=== PATIENT | female | born 1945 | race Caucasian/White ===

== ENCOUNTER 2018-01-08 11:58 | Emergency (ER) | payer MEDICARE, BC ==
[~2018-01-08] VITALS: Ht 162.6 cm; Wt 56.2 kg
[~2018-01-08 11:58] MED LIST: ATORVASTATIN CA20 MG PO; CARAFATE1 GM PO; DAILY MULTIPLE1 EACH PO; DOCUSATE SODIU100 MG PO; FUROSEMIDE40 MG PO; GAS-X80 MG PO; IBUPROFEN800 MG PO; LEVOTHYROXINE50 MCG PO; LYRICA75 MG PO; OXYCODONE HCL5 MG PO; PEPCID20 MG PO; POTASSIUM CHLO10 ME1 PO; TESSALON PERLE100 MG PO; VENTOLIN HFA18 GM INH; ZOFRAN ODT4 MG PO
[2018-01-08] MEDS ORDERED: OMEPRAZOLE20 MG PO (12:27)
--- OUTSIDE RECORDS SUMMARY | 2018-01-08 13:30 | XMS | Clinical Summary ---
Demographics + + + | Address | [address] | | | [place] [address] | + + + | Home Phone | | + + + | Preferred Language | Unknown | + + + | Marital Status | | + + + | Episcopal Affiliation | CAT | + + + | Race | White | + + + | Ethnic Group | Not or | + + + Author + + + | Author | [facility] | + + + | Organization | [facility] | + + + | Address | Unknown | + + + | Phone | Unavailable | + + + Support +------+ +---------+ + | Name | Relationship | Address | Phone | +------+ +---------+ + ECON | Unknown | | +------+ +---------+ + Care Team Providers + +------+ + | Care Golf Technician Name | Role | Phone | + +------+ + | Luke Benavides DO | PP | | + +------+ + Source Comments [facility] is fully live on both [facility] and [facility] Allergies + + + + + + | Active Allergy | Reactions | Severity | Noted | Comments | | | | | Date | | + + + + + + | Adhesive Bandage | Dermatitis | Medium | 03/20/20 | | | | | | 11 | | + + + + + + | Aspirin | Nausea | Medium | 03/20/20 | Stomach burning | | | | | 11 | sensation | + + + + + + | Diphenhydramine-Zinc | Pruritus | Medium | 03/20/20 | | | Acetate | | | 11 | | + + + + + + | Codeine | Rash, Nausea and | Medium | 03/20/20 | Headaches | | | Vomiting | | 11 | | + + + + + + | Cortisone | Pruritus, Edema, | High | 03/17/20 | | | | Nausea | | 14 | | + + + + + + | Domperidone | Unknown, Dyspnea | High | 02/21/20 | Weakness | | | | | 16 | | + + + + + + | Duloxetine | Unknown | Medium | 02/21/20 | Euphoric feeling | | | | | 16 | | + + + + + + | Hydrocodone-Acetamin | Nausea and Vomiting, | Low | 02/21/20 | Ringing in ears | | ophen | Dizziness | | 16 | | + + + + + + | Hydrocortisone | Hives, Rash | High | 02/21/20 | | | | | | 16 | | + + + + + + | Lidocaine | Hives | High | 02/21/20 | | | | | | 16 | | + + + + + + | Morphine | Headache, Nausea | Medium | 03/20/20 | | | | | | 11 | | + + + + + + | Oxycodone-Acetaminop | Nausea and Vomiting | Low | 02/21/20 | | | hen | | | 16 | | + + + + + + | Metoclopramide | Dyspnea | High | 02/21/20 | Shakiness/ | | | | | 16 | weakness | + + + + + + | Sulfamethoxazole-Tri | Rash | Medium | 02/21/20 | | | methoprim | | | 16 | | + + + + + + | Triamcinolone | Hives | High | 02/21/20 | | | | | | 16 | | + + + + + + Current Medications + + +---------+---------+------+------+-------+ | Prescription | Sig. | Disp. | Refills | Star | End | Statu | | | | | | t | Date | s | | | | | | Date | | | + + +---------+---------+------+------+-------+ | cyanocobalamin | Take 1,000 mcg by | | | | | Activ | | (VITAMIN B-12) 1,000 | mouth once daily. | | | | | e | | mcg Oral Tablet | | | | | | | + + +---------+---------+------+------+-------+ | levothyroxine | Take 50 mcg by mouth | | | | | Activ | | (SYNTHROID) 50 mcg | once daily. | | | | | e | | Oral Tablet | | | | | | | + + +---------+---------+------+------+-------+ | conjugated | Place 0.5 g into the | | | | | Activ | | estrogens 0.625 | vagina three times | | | | | e | | mg/gram Vaginal | weekly (on Saturday, | | | | | | | Cream | Saturday and | | | | | | | | Saturday). Administer | | | | | | | | in a cyclic regimen | | | | | | | | (3 weeks on and 1 | | | | | | | | week off). | | | | | | + + +---------+---------+------+------+-------+ | atorvastatin 20 mg | Take 20 mg by mouth | | | | | Activ | | oral tablet | once daily. | | | | | e | + + +---------+---------+------+------+-------+ | potassium chloride | Take 1 packet by | 14 | 0 | 07/2 | | Activ | | 20 mEq oral packet | mouth once daily. | packet | | 2/20 | | e | | | | | | 14 | | | + + +---------+---------+------+------+-------+ | simethicone chew | Take 1 tablet by | 60 | 1 | 09/0 | | Activ | | 80 mg oral | mouth four times | tablet | | 4/20 | | e | | tablet,chewable | daily as needed for | | | 14 | | | | | bloating. | | | | | | + + +---------+---------+------+------+-------+ | pregabalin 75 mg | Take 150 mg by mouth | | | | | Activ | | oral capsule | once daily at | | | | | e | | | bedtime. Max: 600 | | | | | | | | mg/day | | | | | | + + +---------+---------+------+------+-------+ | Erythromycin 250 | Take 0.5 tablets by | 42 | 2 | 11/0 | | Activ | | mg oral tablet | mouth four times | tablet | | 4/20 | | e | | | daily. Take for 21 | | | 15 | | | | | days and then stop | | | | | | | | for 1 week. Repeat | | | | | | | | cycle | | | | | | + + +---------+---------+------+------+-------+ | nitroglycerin 0.3 | Place 0.3 mg under | | | | | Activ | | mg sublingual | tongue as needed for | | | | | e | | tablet, sublingual | chest pain. Place | | | | | | | | under tongue and | | | | | | | | allow to dissolve. | | | | | | | | Administer every 5 | | | | | | | | minutes, max of 3 | | | | | | | | doses in 15 minutes. | | | | | | + + +---------+---------+------+------+-------+ | mirtazapine 15 mg | | | | 12/2 | | Activ | | oral tablet | | | | 12/21 | | e | | | | | | 15 | | | + + +---------+---------+------+------+-------+ | pantoprazole 20 mg | Take 1 tablet by | 180 | 3 | 03 | | Activ | | oral tablet,delayed | mouth two times | tablet | | 12/21 | | e | | release (DR/EC) | daily. Take 30 | | | 16 | | | | | minutes prior to | | | | | | | | meal | | | | | | + + +---------+---------+------+------+-------+ | Lactobacillus | Take by mouth 2 | | | | | Activ | | acidophilus 100 mg | (two) times daily. | | | | | e | | (1 billion cell) | | | | | | | | oral capsule | | | | | | | + + +---------+---------+------+------+-------+ | acetaminophen 325 | Take 1-2 tablets by | | | 04/1 | | Activ | | mg oral tablet | mouth every four | | | 5/20 | | e | | | hours as needed. | | | 16 | | | + + +---------+---------+------+------+-------+ | hydrOXYzine | Take 1 capsule by | 20 | 0 | 04/1 | | Activ | | pamoate 25 mg oral | mouth every six | capsule | | 5/20 | | e | | capsule | hours as needed | | | 16 | | | | | (nausea). | | | | | | + + +---------+---------+------+------+-------+ | senna-docusate | Take 1 tablet by | 60 | 1 | 04/1 | | Activ | | (SENNA PLUS) 8.6-50 | mouth two times | tablet | | 5/20 | | e | | mg oral tablet | daily. | | | 16 | | | + + +---------+---------+------+------+-------+ | polyethylene | Mix 1 packet and | 30 | 1 | 04/1 | | Activ | | glycol 17 gram oral | take orally once | packet | | 5/20 | | e | | powder in packet | daily as needed (for | | | 16 | | | | | constipation). | | | | | | + + +---------+---------+------+------+-------+ | ondansetron ODT | Dissolve 1 tablet in | 15 | 1 | 04/1 | | Activ | | (ZOFRAN ODT) 4 mg | mouth every twelve | tablet | | 5/20 | | e | | oral | hours as needed. | | | 16 | | | | tablet,disintegratin | | | | | | | | g | | | | | | | + + +---------+---------+------+------+-------+ | oxyCODONE, | Take 1-4 tablets by | 150 | 0 | 05/0 | | Activ | | immediate release, 5 | mouth every four | tablet | | 3/20 | | e | | mg oral tablet | hours as needed (for | | | 16 | | | | | pain.). | | | | | | + + +---------+---------+------+------+-------+ | gabapentin 300 mg | Take 1 capsule by | 120 | 0 | 07/1 | | Activ | | oral capsule | mouth three times | capsule | | 1/20 | | e | | | daily. | | | 16 | | | + + +---------+---------+------+------+-------+ | traMADol 50 mg | Take 1-2 tablets | 120 | 0 | 08/1 | | Activ | | oral tablet | every 6 hours as | tablet | | 6/20 | | e | | | needed for pain. Do | | | 16 | | | | | not exceed 300 | | | | | | | | mg/day. Wean as | | | | | | | | tolerated. Stop if | | | | | | | | nausea increases. | | | | | | + + +---------+---------+------+------+-------+ | furosemide (LASIX) | Take three times | 120 | 0 | 08/1 | | Activ | | 20 mg oral tablet | daily as needed for | tablet | | 6/20 | | e | | | unilateral leg edema | | | 16 | | | + + +---------+---------+------+------+-------+ | meloxicam 15 mg | TK 1 T PO QD | | 0 | 06/0 | | Activ | | oral tablet | | | | 8/20 | | e | | | | | | 17 | | | + + +---------+---------+------+------+-------+ | HYDROmorphone | Take 1 to 2 tablets | 20 | 0 | 06/2 | | Activ | | (DILAUDID) 2 mg oral | by mouth every six | tablet | | 1/20 | | e | | tablet | hours as needed for | | | 17 | | | | | moderate pain. | | | | | | + + +---------+---------+------+------+-------+ | diclofenac | Apply 4 g to | 100 g | 0 | 12/1 | | Activ | | (VOLTAREN) 1 % | affected area four | | | 2/20 | | e | | topical gel | times daily. 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/16/2013 | + + + Encounters +--------+ + + + + | Date | Type | Specialty | Care Team | Description | +--------+ + + + + | 11/12/ | Office | | Bj Dominguez MD | Vulvovaginitis | | 2016 | Visit | | | (Primary Dx) | +--------+ + + + + | 11/12/ | Hospital | | [facility] | | | 2016 | Encounter | | DEJUAN Catherine | | +--------+ + + + + | 11/12/ | Office | | [facility] | Status post total | | 2016 | Visit | | DEJUAN Catherine | right knee | | | | | | replacement (Primary | | | | | | Dx); Status post | | | | | | total left knee | | | | | | replacement | +--------+ + + + + | 11/08/ | Senior Insight Manager | | [facility] | Right knee pain, | | 2016 | | | DEJUAN Catherine | unspecified | | | | | | chronicity (Primary | | | | | | Dx) | +--------+ + + + + | 11/05/ | Senior Insight Manager | | [facility] | Knee pain, | | 2016 | | | DEJUAN Catherine | unspecified | | | | | | chronicity, | | | | | | unspecified | | | | | | laterality (Primary | | | | | | Dx) | +--------+ + + + + | 10/29/ | Telephone | | Desean Wei MD | Knee pain (R Knee | | 2016 | | | | Pain ) | +--------+ + + + + | 10/11/ | Telephone | | Bj Dominguez MD | Infection | | 2016 | | | | | +--------+ + + + + | 10/11/ | Documentati | | Bj Dominguez MD | | | 2016 | on | | | | +--------+ + + + + | 10/08/ | Documentati | | Bj Dominguez MD | | 2016 | on | | | | +--------+ + + + + from Last 3 Months Family History + + +------+ + | Medical History | Relation | Name | Comments | + + +------+ + | Heart Disease | Brother | | | + + +------+ + | Cancer | Father | | Bone | + + +------+ + | Heart Disease | Father | | | + + +------+ + | Diabetes | Maternal | | | | | Grandmoth | | | | | er | | | + + +------+ + | Anesthesia | Neg Hx | | | + + +------+ + + +------+--------+ + | Relation | Name | Status | Comments | + +------+--------+ + | Brother | | | | + +------+--------+ + | Father | | | | + +------+--------+ + | Maternal Grandmother | | | | + +------+--------+ + Social History + + + +--------+ + | Tobacco Use | Types | Packs/Day | Years | Date | | | | | Used | | + + + +--------+ + | Former Smoker | Cigarettes | 0.5 | 2 | Quit: 03/17/1968 | + + + +--------+ + + +---+---+---+ | Smokeless Tobacco: | | | | | Never Used | | | | + +---+---+---+ + + | Comments: Patient lives with in [place]. | + + + + +---------+ + | Alcohol Use | Drinks/We | oz/Week | Comments | | | ek | | | + + +---------+ + | No | | | | + + +---------+ + + + + | Sex Assigned at | Date Recorded | | | | + + + | Not on file | | + + + Last Filed Vital Signs + + + + | Vital Sign | Reading | Time Taken | + + + + | Blood Pressure | 146/79 | 06/18/2017 1:42 PM PDT | + + + + | Pulse | 75 | 06/18/2017 1:42 PM PDT | + + + + | Temperature | 36.3 C (97.3 F) | 05/22/2017 7:27 PM PDT | + + + + | Respiratory Rate | 15 | 05/22/2017 7:27 PM PDT | + + + + | Oxygen Saturation | 99% | 05/22/2017 7:27 PM PDT | + + + + | Inhaled Oxygen | - | - | | Concentration | | | + + + + | Weight | 59 kg (130 lb) | 06/18/2017 1:42 PM PDT | + + + + | Height | 162.6 cm (5' 4") | 05/22/2017 9:00 AM PDT | + + + + | Body Mass Index | 22.31 | 06/18/2017 1:42 PM PDT | + + + + Plan of Treatment + + + + + | Health Maintenance | Due Date | Last Done | Comments | + + + + + | INFLUENZA VACCINE | | | | | (FLU SHOT) | 7 | | | + + + + + Implants + +------+--------+ +--------+--------+--------+ | Implanted | Type | Area | Manufacture | Device | Expira | Model | | | | | r | | tion | / | | | | | | Identi | Date | Serial | | | | | | fier | | / Lot | + +------+--------+ +--------+--------+--------+ | Cement Palacos - | | Right: | YESENIA | | 08/01/ | 00-111 | | [id number]: Qty: 2 on | | Knee | | | 2017 | 2-140- | | 02/11/2013 by Desean Wei, | | | | | | 01 / | | MD | | | | | | /[id number] | | | | | | | | 317 | + +------+--------+ +--------+--------+--------+ | Legion Hk 13mm Ferdinand Stern | | Right: | MOE & | | 03/01/ | [id number] | | - [id number]: Qty: 1 | | Knee | NEPHEW | | 2020 | 86 / | | on 02/11/2013 by Desean Wei | | | | | | /11CTM | | MD Dorene | | | | | | 0017 | + +------+--------+ +--------+--------+--------+ | Lgn Pressfit Stem 16mm X | | Right: | MOE & | | 05/31/ | [id number] | | 160mm - [id number]: | | Knee | NEPHEW | | 2021 | 49 / | | Qty: 1 on 02/11/2013 by Eriberto | | | | | | /12ESM | | Desean Catherine MD | | | | | | [id number] | + +------+--------+ +--------+--------+--------+ | Lgn Ck/Hk Full Tib Wdge Sz1-2 | | Right: | MOE & | | 07/01/ | [id number] | | 10mm - [id number]: | | Knee | NEPHEW | | 2021 | 73 / | | Qty: 1 on 02/11/2013 by Eriberto, | | | | | | /12GSL | | Desean Catherine MD | | | | | | 0006 | + +------+--------+ +--------+--------+--------+ | Legion Hk Tibial Base Sz 2 | | Right: | MOE & | | 08/01/ | [id number] | | Right - [id number]: | | Knee | NEPHEW | | 2021 | 02 / | | Qty: 1 on 02/11/2013 by Eriberto, | | | | | | /[id number] | | Desean Catherine MD | | | | | | 8278 | + +------+--------+ +--------+--------+--------+ | Lgn Pressfit Stem 13mm X | | Right: Toshia ROSA & | | 10/31/ | [id number] | | 160mm - [id number]: | | Knee | NEPHEW | | 2021 | 46 / | | Qty: 1 on 02/11/2013 by Eriberto, | | | | | | /12JAB | | Desean Catherine MD | | | | | | [id number] | + +------+--------+ +--------+--------+--------+ | Lgn Hk Dis Fem Wdg Sz3 5mm - | | Right: | MOE & | | 03/01/ | [id number] | | [id number]: Qty: 1 on | | Knee | NEPHEW | | 2021 | 53 / | | 02/11/2013 by Desean Wei, | | | | | | /12CAP | | MD | | | | | | 3397 | + +------+--------+ +--------+--------+--------+ | Lgn Hk Dis Fem Wdg Sz3 10mm - | | Right: | MOE & | | 03/31/ | [id number] | | [id number]: Qty: 1 on | | Knee | NEPHEW | | 2021 | 54 / | | 02/11/2013 by Desean Wei | | | | | | /12DAP | | MD Dorene | | | | | | 6644 | + +------+--------+ +--------+--------+--------+ | Lgn Hk Fem Assembly Sz 3 Rt - | | Right: | MOE & | | 08/01/ | [id number] | | [id number]: Qty: 1 on | | Knee | NEPHEW | | 2018 | 63 / | | 02/11/2013 by Desean Wei | | | | | | /12HM1 | | W, | | | | | | 4185 | + +------+--------+ +--------+--------+--------+ | Legion Hk Gd Motion Isrt 13mm | | Right: | MOE & | | 07/01/ | [id number] | | Sz 2-3 Rt - | | Knee | NEPHEW | | 2020 | 44 / | | [id number]: Qty: 1 on | | | | | | /[id number] | | 02/11/2013 by Desean Wei, | | | | | | 3976 | | | | | | | | | + +------+--------+ +--------+--------+--------+ | Thurston Pledget Ptfe 2.5cm X | | | BARD | | 03/01/ | [id number] | | 15cm - [id number]: | | | | | 2019 | / | | Qty: 1 on 06/08/2014 by | | | | | | /[id number] | | Max Ba MD | | | | | | 782 | + +------+--------+ +--------+--------+--------+ | Mesh Parietex Polyester 3.6 | | | COVIDIEN | | | PCO9X | | Round - [id number]: | | | TYCO US | | | / / | | Qty: 1 on 06/08/2014 | | | SURGICAL | | | | + +------+--------+ +--------+--------+--------+ | Cement Bone Palacos R 40gm - | | | YESENIA | | 08/31/ | 00-111 | | [id number]: Qty: 2 on | | | | | 2019 | 2-140- | | 03/14/2016 by Desean Wei | | | | | | 01 / | | MD Dorene | | | | | | /[id number] | | | | | | | | 429 | + +------+--------+ +--------+--------+--------+ | Baseplate Tibial Kasia Ii 4 | | Left: | MOE & | | 11/26/ | [id number] | | Left Knee Cement Titanium | | Knee | NEPHEW | | 2024 | 66 / | | Nonporous - | | | | | | /[id number] | | [id number]: Qty: 1 on | | | | | | 8253 | | 03/14/2016 by Desean Wei | | | | | | | | MD Dorene | | | | | | | + +------+--------+ +--------+--------+--------+ | Insert Articular 3-4 13mm | | Left: | MOE & | | 07/01/ | [id number] | | Knee Constrain Kasia Ii - | | Knee | NEPHEW | | 2024 | 26 / | | [id number]: Qty: 1 on | | | | | | /[id number] | | 03/14/2016 by Desean Wei | | | | | | 548 | | W, | | | | | | | + +------+--------+ +--------+--------+--------+ | Stem Femoral 100mm 16mm Press | | Left: | MOE & | | 08/31/ | [id number] | | Fit Slotted Revision | | Knee | NEPHEW | | 2023 | 16 / | | Revision Knee - | | | | | | /[id number] | | [id number]: Qty: 1 on | | | | | | 2890 | | 03/14/2016 by Desean Wei | | | | | | | | W, | | | | | | | + +------+--------+ +--------+--------+--------+ | Component Femoral 5 Knee Left | | Left: | MOE & | | 01/02/ | [id number] | | Posterior Stabilize Kasia | | Knee | NEPHEW | | 2025 | 15 / | | Ii Legion Spc Oxinium - | | | | | | /[id number] | | [id number]: Qty: 1 on | | | | | | 3559 | | 03/14/2016 by Desean Wei | | | | | | | | WMD | | | | | | | + +------+--------+ +--------+--------+--------+ Results UA 10 DIP, POC (11/12/2017 3:28 PM) + + + + | Component | Value | Ref Range | + + + + | COLOR (UA DIP), POC | Yellow | | + + + + | APPEARANCE (UA DIP), | Clear | | | POC | | | + + + + | LEUKOCYTES (UA DIP), | Moderate (A) | Negative | | POC | | | + + + + | NITRITES (UA DIP), | Negative | Negative | | POC | | | + + + + | UROBILINOGEN (UA | 0.2 | 0.2 - 1.0 E.U./dL | | DIP), POC | | | + + + + | PROTEIN (UA DIP), | Negative | Neg - Trace mg/dL | | POC | | | + + + + | PH (UA DIP), POC | 6.0 | 5.0 - 8.0 | + + + + | BLOOD (UA DIP), POC | Negative | Negative | + + + + | SPECIFIC GRAVITY (UA | <=1.005 (A) | 1.005 - 1.030 | | DIP), POC | | | + + + + | KETONES (UA DIP), | Negative | Negative mg/dL | | POC | | | + + + + | BILIRUBIN (UA DIP), | Negative | Negative | | POC | | | + + + + | GLUCOSE (UA DIP), | Negative | Negative - Trace | | POC | | mg/dL | + + + + + + + | Specimen | Performing Laboratory | + + + | Urine | [facility] POINT OF CARE TESTS [address], [place] | | | [address] | + + + X-RAY KNEE 4 VIEWS RIGHT 2 VIEWS LEFT ORTHO COMBO (11/12/2017 12:34 PM) + + + | Specimen | Performing Laboratory | + + + | | [facility] VOICE RECOGNITION | + + + + + | Narrative | + + | STUDY: KNEE 4 VWS RIGHT 2 VWS LEFT ORTHO COMBO HISTORY: Arthroplasty. | | COMPARISON: 04/18/2017 and 05/03/15 FINDINGS: Left: The total knee arthroplasty | | is in satisfactory alignment, without periprosthetic fracture, breakage, loosening or | | other failure. There is no malalignment, or osseous destruction. No effusion is | | noted. Right: Longstem constrained right total knee arthroplasty is normally | | aligned without evidence of breakage or periprosthetic fracture. Minimal lucency | | surrounding the femoral stem is slightly more conspicuous than on the prior exam. | | Otherwise there is no failure or loosening. 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 Foci of mineralization are present at the anterior knee soft tissues. | | IMPRESSION: Right total knee arthroplasty in normal alignment with minimal lucency | | surrounding the femoral stem, slightly more conspicuous than on the prior exam. | | Otherwise no hardware complication. Intact left total knee arthroplasty. I | | have personally reviewed the images and, if necessary, edited the report. I agree | | with the report as now presented. | + + + ----+ | Procedure Note | + ----+ | Service Account, Radiant Res In Interface - 11/12/2017 12:57 PM PST STUDY: KNEE 4 VWS | | RIGHT 2 VWS LEFT ORTHO COMBO HISTORY: Arthroplasty.COMPARISON: 04/18/2017 and | | 05/03/15FINDINGS: Left: The total knee arthroplasty is in satisfactory alignment, without | | periprosthetic fracture, breakage, loosening or other failure. There is no | | malalignment, or osseous destruction. No effusion is noted. Right: Longstem constrained | | right total knee arthroplasty is normally aligned without evidence of breakage or | | periprosthetic fracture. Minimal lucency surrounding the femoral stem is slightly more | | conspicuous than on the prior exam. Otherwise there is no failure or loosening. Surgical | | absence of the patella is again seen. Foci of mineralization are present at the | | anterior knee soft tissues.IMPRESSION: Right total knee arthroplasty in normal alignment | | with minimal lucency surrounding the femoral stem, slightly more conspicuous than on | | the prior exam. Otherwise no hardware complication.Intact left total knee arthroplasty.I | | have personally reviewed the images and, if necessary, edited the report. I agree with | | the report as now presented. | | | |Right total knee arthroplasty in normal alignment with minimal lucency surrounding the femo ral stem, slightly more conspicuous than on the prior exam. Otherwise no hardware complicati on. | | | |Intact left total knee arthroplasty. | | | | | |I have personally reviewed the images and, if necessary, edited the report. I agree with t he report as now presented. | + ----+ ORDERS OTHER (11/12/2017)UA, DIPSTICK ONLY (10/08/2017) + + + + | Component | Value | Ref Range | + + + + | COLOR(UR) | straw | | + + + + | APPEARANCE | clear | | + + + + | LEUKOCYTE ESTERASE | 500 | Negative | + + + + | NITRITES | negative | Negative | + + + + | UROBILINOGEN | normal | 0.2 KOBE UNITS | + + + + | PROTEIN(LAB) | negative | Negative to Trace | | | | mg/dL | + + + + | PH(UR) | 7 | 5 - 8 | + + + + | BLOOD | negative | Negative | + + + + | SPECIFIC GRAVITY | 1.015 | 1.005 - 1.03 | + + + + | KETONES | negative | Negative mg/dL | + + + + | BILIRUBIN | negative | Negative | + + + + | GLUCOSE(UR) | normal | Negative to Trace | | | | mg/dL | + + + + + + + | Specimen | Performing Laboratory | + + + | Urine | NON [facility] | + + + CULTURE, URINE BACTI (10/08/2017) + + + | Specimen | Performing Laboratory | + + + | Urine | NON [facility] | + + + + + | Narrative | + + | No growth. | + + from Last 3 Months
--- OUTSIDE RECORDS SUMMARY | 2018-01-08 13:43 | XMS | Encounter Summary ---
Demographics + + + | Address | [address] | | | [place] [address] | + + + | Home Phone | | + + + | Preferred Language | Unknown | + + + | Marital Status | | + + + | Protestant Affiliation | CAT | + + + | Race | White | + + + | Ethnic Group | Not or | + + + Author + + + | Author | [facility] | + + + | Organization | [facility] | + + + | Address | Unknown | + + + | Phone | Unavailable | + + + Support +------+ +---------+ + | Name | Relationship | Address | Phone | +------+ +---------+ + ECON | Unknown | | +------+ +---------+ + Care Team Providers + +------+ + | Care Neighborhood Conservation Officer Name | Role | Phone | + +------+ + | Kennedy Luke | PCP | | + +------+ + Reason for Visit + + + | Reason | Comments | + + + | Knee pain | R Knee Pain | + + + Encounter Details +--------+ + + + + | Date | Type | Department | Care Team | Description | +--------+ + + + + | 10/29/ | Telephone | Orthopaedics at | Desean Wei MD | Knee pain (R Knee | | 2017 | | [facility] [address] | [address] | Pain ) | | | | [facility] | [facility] | | | | | Mailcode: [id number] | [place], [place] | | | | | [facility] | [address] | | | | | [place], [place] | [phone] | | | | | [address] | | | | | | [phone] | | | +--------+ + + + + Social History + + + +--------+ [...] on file | | + + + as of this encounter Plan of Treatment Not on fileas of this encounter Visit Diagnoses Not on filein this encounter"
--- OUTSIDE RECORDS SUMMARY | 2018-01-08 13:43 | XMS | Encounter Summary ---
Demographics + + + | Address | [address] | | | [place] [address] | + + + | Home Phone | | + + + | Preferred Language | Unknown | + + + | Marital Status | | + + + | Yarsani Affiliation | CAT | + + + | Race | White | + + + | Ethnic Group | Not or | + + + Author + + + | Author | [facility] | + + + | Organization | [facility] | + + + | Address | Unknown | + + + | Phone | Unavailable | + + + Support +------+ +---------+ + | Name | Relationship | Address | Phone | +------+ +---------+ + ECON | Unknown | | +------+ +---------+ + Care Team Providers + +------+ + | Care Bill Adjuster Name | Role | Phone | + +------+ + | Luke Benavides | PCP | | + +------+ + Reason for Referral Physical Therapy (Routine) +--------+--------+ + + + + | Status | Reason | Specialty | Diagnoses / | Referred By | Referred To | | | | | Procedures | Contact | Contact | +--------+--------+ + + + + | Closed | | Physical | Diagnoses | [place], | | | | | Therapy | Status post | Abimael Catherine, | | | | | | total right | PA-C [address] | | | | | | knee | [address] | | | | | | replacement | [place], | | | | | | Procedures | [place] | | | | | | PHYSICAL | [address] | | | | | | THERAPY | Phone: | | | | | | REFERRAL | [phone] | | | | | | | Fax: | | | | | | | [phone] | | +--------+--------+ + + + + Reason for Visit + + + | Reason | Comments | + + + | Knee joint pain | | + + + Office Visit - E/M Services (Routine) + +--------+ + + + + | Status | Reason | Specialty | Diagnoses / | Referred By | Referred To | | | | | Procedures | Contact | Contact | + +--------+ + + + + | Authorized | | Orthopedics | Procedures | Non[facility] | Eriberto, | | | | | Rev L TKA | Epic Dept | Desean Catherine MD | | | | | - Eriberto PINEDO | | [address] | | | | | SOR 03/14/16 | | [address] | | | | | | | [place], | | | | | | | [place] | | | | | | | [address] | | | | | | | Phone: | | | | | | | [phone] | | | | | | | Fax: | | | | | | | [phone] | + +--------+ + + + + Encounter Details +--------+---------+ + + + | Date | Type | Department | Care Team | Description | +--------+---------+ + + + | 11/12/ | Office | Orthopaedics at | [facility]imael [facility] | Status post total | | 2017 | Visit | [facility] [address] | [address] Catherine [address] | right knee | | | | [place] Mailcode: CH12A | [address] [place], | replacement (Primary | | | | [place] for [facility] | [place] [address] | Dx); Status post | | | | | [phone] | total left knee | | | | Floor [place], [place] | | replacement | | | | [address] | | | | | | [phone] | | | +--------+---------+ + + + Social History + + [...] + + + as of this encounter Progress Notes Abimael South PA-C - 11/12/2017 1:05 PM PSTFormatting of this note may be different from the original. [facility]ATION -Division of Adult Reconstruction / Joint Replacement Surgery Callie Mcgregor is a 72 y.o. female follows up 1.5 year s/p left TKA (March 2016). She's 4 years s/p revision of R TKR to [facility] (January 2013) and extensor mechanism repair. Had p atellectomy bilaterally prior to these procedures and extensor lag. 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 Walks without assistive devices still. Pain in right anterolateral knee when pressing. Denies thig h or startup pain. Denies warmth, fever, chills, swelling 1. OPERATION RECORD [[id number]] ordered by Desean Wei MD at 03/14/16 1200 Date of Service: 03/14/2016 Attending Surgeon: Desean Wei MD Preoperative Diagnosis: Failed left knee arthroplasty. Procedures: 1. Revision left total knee arthroplasty. 2. Incisional wound VAC dressing placement. Components: [employer] knee size 5 femur, size 4 tibia, with a [address] and a 13 mm constrained polyethylene insert. ROS: Patient denies fevers, chills, chest pain, shortness of breath, chest pain, leg swelli ng or recent infection. The review is otherwise negative except as noted in HPI. PE: gen nad cv effort easy Right knee: 20 deg extensor lag, stable, prom 0-135 Left knee: arom 0-130, stable and balanced nvi d XR: Well-positioned TKA with normal alignment. No lucency, subsidence or fractures seen. S ubtle changes from prior x-rays with anterolateral HO and calcification increasing slightly A: 1+ year s/p left TKA (March 2016), doing well. 4+ years s/p revision of R TKR to [facility] (January 2013) and extensor mechanism repair with prior patellectomy with increasing pain a nd weakness P: I advised that there will be some difficulty with muscle strength given her pre-existing right leg weakness, patellectomy, and hx of multiple revisions. Considering these deficits she functions and ambulates well without support Advised physical therapy to help gait, balance, strengthening; voltaren gel and tylenol fo r pain If extensor mechanism continues to be an issue or worsens, could recommend custom brace. Dorene roca have her meet with Dr Wei prior to this for his thoughts on this vs surgical intervent ion for repairing extensor mechanism F/u with Dr Wei if worsening PRN Abimael South PA-C ORTHOPAEDICS AT [facility] [address] Mailcode: Ch12a [place] [phone] in this encounter Plan of Treatment Not on fileas of this encounter Results ORDERS OTHER (11/12/2017)in this encounter Visit Diagnoses + + | Diagnosis | + + | Status post total right knee replacement - Primary | + + | Status post total left knee replacement | + +"
--- OUTSIDE RECORDS SUMMARY | 2018-01-08 13:43 | XMS | Encounter Summary ---
Demographics + + + | Address | [address] | | | [place] [address] | + + + | Home Phone | | + + + | Preferred Language | Unknown | + + + | Marital Status | | + + + | Yazidi Affiliation | CAT | + + + [...] Team Providers + +------+ + | Care Assistant Sales Director Name | Role | Phone | + +------+ + | Kurtiswarner Luke | PCP | | + +------+ + Encounter Details +--------+ + + + + | Date | Type | Department | Care Team | Description | +--------+ + + + + | 11/12/ | Hospital | Radiology/Imaging | Abimael [facility] | | | 2016 | Encounter | Lab at [facility] [address] | [address] [place] [address] | | | | | [address] [facility] | [address] [facility] | | | | | Health and Healing, | [place] [address] | | | | | [address] [place] [address] | [phone] | | | | | [place], [place] | | | | | | [address] | | | | | | [phone] | | | +--------+ + + + [...] + + + as of this encounter Medications at Time of Discharge + + +---------+---------+ + + | Medication | Sig. | Disp. | Refills | Start | End Date | | | | | | Date | | + + +---------+---------+ + + | acetaminophen 325 | Take 1-2 tablets by | | | 03/16/ | | | mg oral tablet | mouth every four | | | 16 | | | | hours as needed. | | | | | + + +---------+---------+ + + | atorvastatin 20 mg | Take 20 mg by mouth | | | | | | oral tablet | once daily. | | | | | + + +---------+---------+ + + | conjugated | Place 0.5 g into the | | | | | | estrogens 0.625 | vagina three times | | | | | | mg/gram Vaginal | weekly (on Saturday, | | | | | | Cream | Saturday and | | | | | | | Saturday). Administer | | | | | | | in a cyclic regimen | | | | | | | (3 weeks on and 1 | | | | | | | week off). | | | | | + + +---------+---------+ + + | cyanocobalamin | Take 1,000 mcg by | | | | | | (VITAMIN B-12) 1,000 | mouth once daily. | | | | | | mcg Oral Tablet | | | | | | + + +---------+---------+ + + | diclofenac | Apply 4 g to | 100 g | 0 | 11/12/20 | | | (VOLTAREN) 1 % | affected area four | | | 17 | | | topical gel | times daily. | | | | | + + +---------+---------+ + + | Erythromycin 250 | Take 0.5 tablets by | 42 | 2 | 10/05/20 | | | mg oral tablet | mouth four times | tablet | | 15 | | | | daily. Take for 21 | | | | | | | days and then stop | | | | | | | for 1 week. Repeat | | | | | | | cycle | | | | | + + +---------+---------+ + + | furosemide (LASIX) | Take three times | 120 | 0 | 07/17/20 | | | 20 mg oral tablet | daily as needed for | tablet | | 16 | | | | unilateral leg edema | | | | | + + +---------+---------+ + + | gabapentin 300 mg | Take 1 capsule by | 120 | 0 | 06/11/20 | | | oral capsule | mouth three times | capsule | | 16 | | | | daily. | | | | | + + +---------+---------+ + + | HYDROmorphone | Take 1 to 2 tablets | 20 | 0 | 05/22/20 | | | (DILAUDID) 2 mg oral | by mouth every six | tablet | | 17 | | | tablet | hours as needed for | | | | | | | moderate pain. | | | | | + + +---------+---------+ + + | hydrOXYzine | Take 1 capsule by | 20 | 0 | 03/16/20 | | | pamoate 25 mg oral | mouth every six | capsule | | 16 | | | capsule | hours as needed | | | | | | | (nausea). | | | | | + + +---------+---------+ + + | Lactobacillus | Take by mouth 2 | | | | | | acidophilus 100 mg | (two) times daily. | | | | | | (1 billion cell) | | | | | | | oral capsule | | | | | | + + +---------+---------+ + + | levothyroxine | Take 50 mcg by mouth | | | | | | (SYNTHROID) 50 mcg | once daily. | | | | | | Oral Tablet | | | | | | + + +---------+---------+ + + | meloxicam 15 mg | TK 1 T PO QD | | 0 | 05/09/20 | | | oral tablet | | | | 17 | | + + +---------+---------+ + + | mirtazapine 15 mg | | | | 11/21/20 | | | oral tablet | | | | 15 | | + + +---------+---------+ + + | nitroglycerin 0.3 | Place 0.3 mg under | | | | | | mg sublingual | tongue as needed for | | | | | | tablet, sublingual | chest pain. [...] 15 minutes. | | | | | + + +---------+---------+ + + | ondansetron ODT | Dissolve 1 tablet in | 15 | 1 | 03/16/20 | | | (ZOFRAN ODT) 4 mg | mouth every twelve | tablet | | 16 | | | oral | hours as needed. | | | | | | tablet,disintegratin | | | | | | | g | | | | | | + + +---------+---------+ + + | oxyCODONE, | Take 1-4 tablets by | 150 | 0 | 04/03/20 | | | immediate release, 5 | mouth every four | tablet | | 16 | | | mg oral tablet | hours as needed (for | | | | | | | pain.). | | | | | + + +---------+---------+ + + | pantoprazole 20 mg | Take 1 tablet by | 180 | 3 | 02/10/20 | | | oral tablet,delayed | mouth two times | tablet | | 16 | | | release (DR/EC) | daily. Take 30 | | | | | | | minutes prior to | | | | | | | meal | | | | | + + +---------+---------+ + + | polyethylene | Mix 1 packet and | 30 | 1 | 03/16/20 | | | glycol 17 gram oral | take orally once | packet | | 16 | | | powder in packet | daily as needed (for | | | | | | | constipation). | | | | | + + +---------+---------+ + + | potassium chloride | Take 1 packet by | 14 | 0 | 06/22/20 | | | 20 mEq oral packet | mouth once daily. | packet | | 14 | | + + +---------+---------+ + + | pregabalin 75 mg | Take 150 mg by mouth | | | | | | oral capsule | once daily at | | | | | | | bedtime. Max: 600 | | | | | | | mg/day | | | | | + + +---------+---------+ + + | senna-docusate | Take 1 tablet by | 60 | 1 | 03/16/20 | | | (SENNA PLUS) 8.6-50 | mouth two times | tablet | | 16 | | | mg oral tablet | daily. | | | | | + + +---------+---------+ + + | simethicone chew | Take 1 tablet by | 60 | 1 | 08/05/20 | | | 80 mg oral | mouth four times | tablet | | 14 | | | tablet,chewable | daily as needed for | | | | | | | bloating. | | | | | + + +---------+---------+ + + | traMADol 50 mg | Take 1-2 tablets | 120 | 0 | 07/17/20 | | | oral tablet | every 6 hours as | tablet | | 16 | | | | needed for pain. Do | | | | | | | not exceed 300 | | | | | | | mg/day. Wean as | | | | | | | tolerated. Stop if | | | | | | | nausea increases. | | | | | + + +---------+---------+ + + as of this encounter Plan of Treatment Not on fileas of this encounter Results X-RAY KNEE 4 VIEWS RIGHT 2 VIEWS LEFT ORTHO COMBO (11/12/2017 12:34 PM) + + + | Specimen | Performing Laboratory | + + + | | [facility] VOICE RECOGNITION | + + + [...] report as now presented. | + ----+ in this encounter Visit Diagnoses + + | Diagnosis | + + | Right knee pain, unspecified chronicity | + +"
--- OUTSIDE RECORDS SUMMARY | 2018-01-08 13:43 | XMS | Encounter Summary ---
Demographics + + + | Address | [address] | | | [place] [address] | + + + | Home Phone | | + + + | Preferred Language | Unknown | + + + | Marital Status | | + + + | Catholic Affiliation | CAT | + + + | Race | White | + + + | Ethnic Group | Not or | + + + Author + + + | Author | [facility] | + + + | Organization | [facility] | + + + | Address | Unknown | + + + | Phone | Unavailable | + + + Support +------+ +---------+ + | Name | Relationship | Address | Phone | +------+ +---------+ + ECON | Unknown | | +------+ +---------+ + Care Team Providers + +------+ + | Care Break Off Worker Name | Role | Phone | + +------+ + | Kurtiswarner Luke | PCP | | + +------+ + Encounter Details +--------+ + + + + | Date | Type | Department | Care Team | Description | +--------+ + + + + | 11/05/ | Gas Tender | Orthopaedics at | [facility]imael [facility] | Knee pain, | | 2017 | | [facility] [address] | [address] | unspecified | | | | [place] Mailcode: CH12A | [address] [place], | chronicity, | | | | [place] [facility] | [place] [address] | unspecified | | | | and , | [phone] | laterality (Primary | | | | Floor [place], [place] | | Dx) | | | | [address] | | | | | | [phone] | | | +--------+ + + + [...] as of this encounter Plan of Treatment + +--------+ + + | Name | Priori | Associated Diagnoses | Order Schedule | | | ty | | | + +--------+ + + | X-RAY KNEE 4 VIEWS RIGHT 2 VIEWS | Routin | Knee pain, | Expected: | | LEFT ORTHO COMBO | e | unspecified | 11/05/2017, Expires: | | | | chronicity, | 12/06/2018 | | | | unspecified | | | | | laterality | | + +--------+ + + as of this encounter Visit Diagnoses + + | Diagnosis | + + | Knee pain, unspecified chronicity, unspecified laterality - Primary | + +"
--- OUTSIDE RECORDS SUMMARY | 2018-01-08 13:43 | XMS | Encounter Summary ---
Demographics + + + | Address | [address] | | | [place] [address] | + + + | Home Phone | | + + + | Preferred Language | Unknown | + + + | Marital Status | | + + + | Temple Affiliation | CAT | + + + | Race | White | + + + | Ethnic Group | Not or | + + + Author + + + | Author | [facility] | + + + | Organization | [facility] | + + + | Address | Unknown | + + + | Phone | Unavailable | + + + Support +------+ +---------+ + | Name | Relationship | Address | Phone | +------+ +---------+ + ECON | Unknown | | +------+ +---------+ + Care Team Providers + +------+ + | Care Recycler Name | Role | Phone | + +------+ + | Kurtiswarner Luke | PCP | | + +------+ + Encounter Details +--------+ + + + + | Date | Type | Department | Care Team | Description | +--------+ + + + + | 11/08/ | Armature Varnisher | Orthopaedics at | [place]imael [place] | Right knee pain, | | 2016 | | [facility] [address] | [address] Catherine [address] | unspecified | | | | [place] Mailcode: CH12A | [address] IDYLLWILD, | chronicity (Primary | | | | [place] [facility] | [place] [address] | Dx) | | | | and [facility], | [phone] | | | | | Floor [place], [place] | | | | | | [address] | | | | | | [phone] | | | +--------+ + + + [...] Laboratory | + + + | | [facility] VOICE RECOGNITION | + + + [...] Procedure Note | + ----+ | Service Brooklynn, Radiant Res In Interface - 11/12/2017 12:57 [...] + | Right knee pain, unspecified chronicity - Primary | + +"
--- OUTSIDE RECORDS SUMMARY | 2018-01-08 13:43 | XMS | Encounter Summary ---
Demographics + + + | Address | [address] | | | [place] [address] | + + + | Home Phone | | + + + | Preferred Language | Unknown | + + + | Marital Status | | + + + | Worship Affiliation | CAT | + + + | Race | White | + + + | Ethnic Group | Not or | + + + Author + + + | Author | [facility] | + + + | Organization | [facility] | + + + | Address | Unknown | + + + | Phone | Unavailable | + + + Support +------+ +---------+ + | Name | Relationship | Address | Phone | +------+ +---------+ + ECON | Unknown | | +------+ +---------+ + Care Team Providers + +------+ + | Care Nurse Anesthesia Program Director Name | Role | Phone | + +------+ + | Luke Benavides DO | PCP | | + +------+ + Reason for Visit Benefits Check (Routine) +--------+--------+ + + + + | Status | Reason | Specialty | Diagnoses / | Referred By | Referred To | | | | | Procedures | Contact | Contact | +--------+--------+ + + + + | Closed | | Urology | Diagnoses | Alberto, | Alberto, | | | | | Cystocele | MD Bj | MD Bj | | | | | | [address] | [address] | | | | | | Ave | Ave | | | | | | [place], [place] | [place], [place] | | | | | | [address] | [address] | | | | | | Phone: | Phone: | | | | | | [phone] | [phone] | | | | | | Fax: | Fax: | | | | | | [phone] | [phone] | +--------+--------+ + + + + Encounter Details +--------+---------+ + + + | Date | Type | Department | Care Team | Description | +--------+---------+ + + + | 11/12/ | Office | Urology at [facility] | Bj Dominguez MD | Vulvovaginitis | | 2017 | Visit | [address] | [address] | (Primary Dx) | | | | Mail Code: CH10U | [place], [place] | | | | | [facility] | [address] | | | | | and , | [phone] | | | | | Floor [place], [place] | | | | | | [address] | | | | | | [phone] | | | +--------+---------+ + + + [...] + as of this encounter Progress Notes Bj Dominguez MD - 11/12/2017 3:40 PM [id number] with bladder outlet obstruction and dyspar eunia following transobturator mid-urethral sling in 2007. She underwent transvaginal sling excision, cystoscopy 05/22/2017. Callie is voiding great with good force of stream, no difficulty, and has no urinary inconti nence. She is very happy about that. Unfortunately she has been struggling with vaginal disc omfort and itching for several months, she has seen her local superintendent automotive Dr. Mariscal a few ti mes and tried vaginal estrogen replacement, antibiotics, antifungal, Crisco, topical clobeta theodore, and a few other things but nothing has helped. There were no vitals taken for this visit. Pelvic Exam (Female): Log Deckman: Deidra Gross MA External Genitalia: vulvovestibulitis, erythema, scratch-marie Urethra: well-healed Vagina: diffusely irritated POP-Q: no prolapse UA: moderate leuk, otherwise normal Post-void residual: 0mL Impression: Vulvovaginitis Bladder outlet obstruction, postoperative from transvaginal sling excision, cystoscopy Plan: Urine for culture Discussed with Callie that this seems to be more than a straightforward infectious or aure- related vulvovaginitis given failure of multiple therapies. This may be a lichen planus or a typical lichen sclerosis, but this is outside of my area of expertise. I discussed that some times a vulvar biopsy is necessary to establish diagnosis, she mentions Dr. Mariscal has brought this up as an option so I recommend she follow-through with this. She is welcome to follow-up with me as needed. I spent 25 minutes with the patient today, more than half was spent in counseling the patie nt. in this encounter Plan of Treatment Not on fileas of this encounter Results UA 10 DIP, POC (11/12/2017 3:28 [...] + + | Urine | [facility] POINT OF CARE TESTS [address] [facility], [place] | | | [address] | + + + in this encounter Visit Diagnoses + + | Diagnosis | + + | Vulvovaginitis - Primary | + + | Vaginitis and vulvovaginitis, unspecified | + +"
--- OUTSIDE RECORDS SUMMARY | 2018-01-08 13:44 | XMS | Encounter Summary ---
Demographics + + + | Address | [address] | | | [place] [address] | + + + | Home Phone | | + + + | Preferred Language | Unknown | + + + | Marital Status | | + + + | Zoroastrian Affiliation | CAT | + + + | Race | White | + + + | Ethnic Group | Not or | + + + Author + + + | Author | [facility] | + + + | Organization | [facility] | + + + | Address | Unknown | + + + | Phone | Unavailable | + + + Support +------+ +---------+ + | Name | Relationship | Address | Phone | +------+ +---------+ + ECON | Unknown | | +------+ +---------+ + Care Team Providers + +------+ + | Care Violin Restorer Name | Role | Phone | + +------+ + | Kennedy Luke | PCP | | + +------+ + Encounter Details +--------+ + + + + | Date | Type | Department | Care Team | Description | +--------+ + + + + | 10/11/ | Documentati | Urology at [facility] | Bj Dominguez MD | | | 2017 | on | [address] | [address] | | | | | Mail Code: CH10U | [place], [place] | | | | | [facility] | [address] | | | | | and | [phone] | | | | | Floor [place], [place] | | | | | | [address] | | | | | | [phone] | | | +--------+ + + + [...] Not on fileas of this encounter Results CULTURE, URINE BACTI (10/08/2017) + + + | Specimen | Performing Laboratory | + + + | Urine | NON [facility] | + + + + + | Narrative | + + | No growth. | + + in this encounter Visit Diagnoses Not on filein this encounter"
--- OUTSIDE RECORDS SUMMARY | 2018-01-08 13:44 | XMS | Encounter Summary ---
Demographics + + + | Address | [address] | | | [place] [address] | + + + | Home Phone | | + + + | Preferred Language | Unknown | + + + | Marital Status | | + + + | Hoahaoism Affiliation | CAT | + + + | Race | White | + + + | Ethnic Group | Not or | + + + Author + + + | Author | [facility] | + + + | Organization | [facility] | + + + | Address | Unknown | + + + | Phone | Unavailable | + + + Support +------+ +---------+ + | Name | Relationship | Address | Phone | +------+ +---------+ + ECON | Unknown | | +------+ +---------+ + Care Team Providers + +------+ + | Care Emergency Detail Driver Name | Role | Phone | + +------+ + | Kennedy Luke | PCP | | + +------+ + Reason for Visit + + + | Reason | Comments | + + + | Infection | | + + + Encounter Details +--------+ + + + + | Date | Type | Department | Care Team | Description | +--------+ + + + + | 10/11/ | Telephone | Urology at [facility] | Bj Dominguez MD | Infection | | 2017 | | [address] | [address] | | | | | Mail Code: CH10U | [place], [place] | | | | | [facility] | [address] | | | | | and | [phone] | | | | | Floor [place], [place] | | | | | | [address] | | | | | | [phone] | | | +--------+ + + + [...] + | Comments: Patient lives with in [place], [place]. | + + + + +---------+ [...]
--- OUTSIDE RECORDS SUMMARY | 2018-01-08 13:44 | XMS ---
Demographics + + + | Address | [address] | | | [place] [address] | + + + | Preferred Language | Unknown | + + + | Marital Status | Unknown | + + + | Pentecostal Affiliation | Unknown | + + + | Race | Unknown | + + + | Ethnic Group | Unknown | + + + Author + + + | Author | [facility] | + + + | Organization | [facility] | + + + | Address | [address] | | | [place] [address] | + + + | Phone | | + + + Care Team Providers + + + + | Care Comsec Manager Name | Role | Phone | + + + + Unavailable | Unavailable | + + + + PROBLEMS +---------+ + + +--------+ + + | Type | Condition | ICD9-CM | [id number] | Onset | Condition | SNOMED | | | | Code | Code | Dates | Status | Code | +---------+ + + +--------+ + + | Problem | Nausea | | R11.0 | | Active | [id number] | +---------+ + + +--------+ + + | Problem | Epigastric | | R10.13 | | Active | 63893706 | | | pain | | | | | | +---------+ + + +--------+ + + | Problem | Hyperchole | | E78.0 | | Active | 81777597 | | | sterolemia | | | | | | +---------+ + + +--------+ + + | Problem | Dehydratio | | E86.0 | | Active | 28118140 | | | n | | | | | | +---------+ + + +--------+ + + | Problem | Primary | | F51.01 | | Active | 0410340 | | | insomnia | | | | | | +---------+ + + +--------+ + + ALLERGIES Unknown Allergies SOCIAL HISTORY No smoking Hx information available PLAN OF CARE VITAL SIGNS MEDICATIONS Unknown Medications RESULTS No Results PROCEDURES No Known procedures IMMUNIZATIONS No Known Immunizations"
--- OUTSIDE RECORDS SUMMARY | 2018-01-08 13:44 | XMS ---
Demographics + + + | Address | [address] | | | [place] [address] | + + + | Preferred Language | Unknown | + + + | Marital Status | Unknown | + + + | Christianity Affiliation | Unknown | + + + | Race | Unknown | + + + | Ethnic Group | Unknown | + + + Author + + + | Author | [facility] | + + + | Organization | [facility] | + + + | Address | [address] | | | [place] [address] | + + + | Phone | | + + + Care Team Providers + + + + | Care Wire Saw Operator Name | Role | Phone | + + + + Unavailable | Unavailable | + + + + PROBLEMS +---------+ + + +--------+ + + | Type | Condition | ICD9-CM | [id number] | Onset | Condition | SNOMED | | | | Code | Code | Dates | Status | Code | +---------+ + + +--------+ + + | Problem | Nausea | | R11.0 | | Active | [id number] | +---------+ + + +--------+ + + | Problem | Epigastric | | R10.13 | | Active | 69491663 | | | pain | | | | | | +---------+ + + +--------+ + + | Problem | Hyperchole | | E78.0 | | Active | 02211575 | | | sterolemia | | | | | | +---------+ + + +--------+ + + | Problem | Dehydratio | | E86.0 | | Active | 09612033 | | | n | | | | | | +---------+ + + +--------+ + + | Problem | Primary | | F51.01 | | Active | 6597970 | | | insomnia | | | | | | +---------+ + + +--------+ + + ALLERGIES Unknown Allergies SOCIAL HISTORY No smoking Hx information available PLAN OF CARE VITAL SIGNS MEDICATIONS + + +---------+ + + + +--------+ | Medicati | Instruct | Dosage | Frequenc | Start | End Date | Duration | Status | | on | ions | | y | Date | | | | + + +---------+ + + + +--------+ | Omeprazo | Orally | 1 | 12h | 13 Iftikhar, | | 30 | Active | | le 20 mg | bid | capsule | | 2017 | | day(s) | | + + +---------+ + + + +--------+ RESULTS No Results PROCEDURES No Known procedures IMMUNIZATIONS No Known Immunizations"
--- OUTSIDE RECORDS SUMMARY | 2018-01-08 13:44 | XMS | Encounter Summary ---
Demographics + + + | Address | [address] | | | [place] [address] | + + + | Home Phone | | + + + | Preferred Language | Unknown | + + + | Marital Status | | + + + | Jain Affiliation | CAT | + + + | Race | White | + + + | Ethnic Group | Not or | + + + Author + + + | Author | [facility] | + + + | Organization | [facility] | + + + | Address | Unknown | + + + | Phone | Unavailable | + + + Support +------+ +---------+ + | Name | Relationship | Address | Phone | +------+ +---------+ + ECON | Unknown | | +------+ +---------+ + Care Team Providers + +------+ + | Care Auger Machine Offbearer Name | Role | Phone | + [...] | Telephone | Orthopaedics at | Desean eWi MD | Knee pain (R Knee | | 2017 | | [facility] [address] | [address] | Pain ) | | | | [facility] | [facility] | | | | | Mailcode: [id number] | [place], [place] | | | | | [facility] | [address] | | | | | [place], [place] | [phone] | | | | | [address] | | | | | | [phone] | | | +--------+ + + + [...]
--- OUTSIDE RECORDS SUMMARY | 2018-01-08 13:44 | XMS | Encounter Summary ---
Demographics + + + | Address | [address] | | | [place] [address] | + + + | Home Phone | | + + + | Preferred Language | Unknown | + + + | Marital Status | | + + + | Uatsdin Affiliation | CAT | + + + | Race | White | + + + | Ethnic Group | Not or | + + + Author + + + | Author | [facility] | + + + | Organization | [facility] | + + + | Address | Unknown | + + + | Phone | Unavailable | + + + Support +------+ +---------+ + | Name | Relationship | Address | Phone | +------+ +---------+ + ECON | Unknown | | +------+ +---------+ + Care Team Providers + +------+ + | Care Plastics Technician Name | Role | Phone | + +------+ + | Kennedy Luke | PCP | | + +------+ + Encounter Details +--------+ + + + + | Date | Type | Department | Care Team | Description | +--------+ + + + + | 10/08/ | Documentati | Urology at [facility] | Bj Dominguez MD | | | 2017 | on | [address] | [address] | | | | | Mail Code: CH10U | [place], [place] | | | | | [facility] | [address] | | | | | and , | [phone] | | | | | Floor [place], [place] | | | | | | [address] | | | | | | [phone] | | | +--------+ + + + [...] Not on fileas of this encounter Results ALENA LAMBERT ONLY (10/08/2017) + + + + | [...] NON [facility] | + + + in this encounter Visit Diagnoses Not on filein this encounter"
--- OUTSIDE RECORDS SUMMARY | 2018-01-08 13:44 | XMS | Encounter Summary ---
Demographics + + + | Address | [address] | | | [place] [address] | + + + | Home Phone | | + + + | Preferred Language | Unknown | + + + | Marital Status | | + + + | Shinto Affiliation | CAT | + + + | Race | White | + + + | Ethnic Group | Not or | + + + Author + + + | Author | [facility] | + + + | Organization | [facility] | + + + | Address | Unknown | + + + | Phone | Unavailable | + + + Support +------+ +---------+ + | Name | Relationship | Address | Phone | +------+ +---------+ + ECON | Unknown | | +------+ +---------+ + Care Team Providers + +------+ + | Care Community Midwife Name | Role | Phone | + [...] | 10/11/ | Telephone | Urology at [facility] | Bj Dominguez MD | Infection | | 2017 | | [address] | [address] | | | | | Mail Code: CH10U | [place], [place] | | | | | [facility] | [address] | | | | | and | [phone] | | | | | Floor [place], [place] | | | | | | [address] | | | | | | [phone] | | | +--------+ + + + [...] + | Comments: Patient lives with in [place], [place]. | + + + + +---------+ [...]
--- OUTSIDE RECORDS SUMMARY | 2018-01-08 13:44 | XMS ---
Demographics + + + | Address | [address] | | | [place] [address] | + + + | Preferred Language | Unknown | + + + | Marital Status | Unknown | + + + | Yarsanism Affiliation | Unknown | + + + | Race | Unknown | + + + | Ethnic Group | Unknown | + + + Author + + + | Author | [facility] | + + + | Organization | [facility] | + + + | Address | [address] | | | [place] [address] | + + + | Phone | | + + + Care Team Providers + + + + | Care Director Of Managed Care Name | Role | Phone | + + + + Unavailable | Unavailable | + + + + PROBLEMS +---------+ + + +--------+ + + | Type | Condition | ICD9-CM | [id number] | Onset | Condition | SNOMED | | | | Code | Code | Dates | Status | Code | +---------+ + + +--------+ + + | Problem | Nausea | | R11.0 | | Active | [id number] | +---------+ + + +--------+ + + | Problem | Epigastric | | R10.13 | | Active | 46507981 | | | pain | | | | | | +---------+ + + +--------+ + + | Problem | Hyperchole | | E78.0 | | Active | 99550255 | | | sterolemia | | | | | | +---------+ + + +--------+ + + | Problem | Dehydratio | | E86.0 | | Active | 39086845 | | | n | | | | | | +---------+ + + +--------+ + + | Problem | Primary | | F51.01 | | Active | 7057952 | | | insomnia | | | | | | +---------+ + + +--------+ + + ALLERGIES Unknown Allergies SOCIAL HISTORY No smoking Hx information available PLAN OF CARE VITAL SIGNS MEDICATIONS + + +---------+ +--------+ + +--------+ | Medicati | Instruct | Dosage | Frequenc | Start | End Date | Duration | Status | | on | ions | | y | Date | | | | + + +---------+ +--------+ + +--------+ | Potassiu | Orally | 1 | 8h | | | 90 days | Active | | m | tid | capsule | | | | | | | Chloride | | | | | | | | | 10 MEQ | | | | | | | | + + +---------+ +--------+ + +--------+ RESULTS No Results PROCEDURES No Known procedures IMMUNIZATIONS No Known Immunizations"
--- OUTSIDE RECORDS SUMMARY | 2018-01-08 13:44 | XMS | Encounter Summary ---
Demographics + + + | Address | [address] | | | [place] [address] | + + + | Home Phone | | + + + | Preferred Language | Unknown | + + + | Marital Status | | + + + | Yazidism Affiliation | CAT | + + + | Race | White | + + + | Ethnic Group | Not or | + + + Author + + + | Author | [facility] | + + + | Organization | [facility] | + + + | Address | Unknown | + + + | Phone | Unavailable | + + + Support +------+ +---------+ + | Name | Relationship | Address | Phone | +------+ +---------+ + ECON | Unknown | | +------+ +---------+ + Care Team Providers + +------+ + | Care Jet Engine Mechanic Name | Role | Phone | + +------+ + | Kurtiswarner Luke | PCP | | + +------+ + Encounter Details +--------+ + + + + | Date | Type | Department | Care Team | Description | +--------+ + + + + | 11/05/ | Associate Editor | Orthopaedics at | [facility] | Knee pain, | | 2017 | | [facility] [address] | [place] [address] | unspecified | | | | [place] Mailcode: CH12A | [address] [place] [place], | chronicity, | | | | [place] for [facility] | [place] [address] | unspecified | | | | and , | [phone] | laterality (Primary | | | | Floor [place], [place] | | Dx) | | | | [address] | | | | | | [phone] | | | +--------+ + + + [...]
--- OUTSIDE RECORDS SUMMARY | 2018-01-08 13:44 | XMS | Encounter Summary ---
Demographics + + + | Address | [address] | | | [place] [address] | + + + | Home Phone | | + + + | Preferred Language | Unknown | + + + | Marital Status | | + + + | Denominational Affiliation | CAT | + + + [...] Team Providers + +------+ + | Care Crotch Piece Baster Name | Role | Phone | + [...] | | | total right | PA-C [address] | | | | | | knee | [address] | | | | | | replacement | [place], | | | | | | Procedures | [place] | | | | | | PHYSICAL | [address] | | | | | | THERAPY | Phone: | | | | | | REFERRAL | [phone] | | | | | | | Fax: | | | | | | | [phone] | | +--------+--------+ + + + + [...] | | | | | | [place], | | | | | | | [place] | | | | | | | [address] | | | | | | | Phone: | | | | | | | [phone] | | | | | | | Fax: | | | | | | | [phone] | + +--------+ + + + + Encounter Details +--------+---------+ + + + | Date | Type | Department | Care Team | Description | +--------+---------+ + + + | 11/12/ | Office | Orthopaedics at | [facility] | Status post total | | 2017 | Visit | [facility] [address] | [place] [address] | right knee | | | | [place] Mailcode: CH12A | [address] [place], | replacement (Primary | | | | [place] [facility] | [place] [address] | Dx); Status post | | | | | [phone] | total left knee | | | | Floor [place], [place] | | replacement | | | | [address] | | | | | | [phone] | | | +--------+---------+ + + + [...] note may be different from the original. [facility] DEPARTMENT OF ORTHOPAEDICS & REHABILITATION -Division of Adult Reconstruction / Joint Replacement Surgery Callie Mcgregor is a 72 y.o. female follows up 1.5 year s/p left TKA (March 2016). She's 4 years s/p revision of R TKR to [facility] (January 2013) and extensor mechanism repair. Had p atellectomy bilaterally prior to these procedures and extensor lag. Has right leg weakness t o where it has been difficult to fruit or nut picker the leg recently, worse after long activity. Walks without assistive devices still. Pain in right anterolateral knee when pressing. Denies thig h or startup pain. Denies warmth, fever, chills, swelling 1. OPERATION RECORD [[id number]] ordered by Desean Wei MD at 03/14/16 [...] years s/p revision of R TKR to [facility] (January 2013) and extensor mechanism [...] worsening PRN [facility] PA-C ORTHOPAEDICS AT [facility] [address] Mailcode: Ch12a [place] [phone] in this encounter Plan of Treatment Not on fileas of this encounter Results ORDERS OTHER (11/12/2017)in this encounter Visit Diagnoses + + | Diagnosis | + + | Status post total right knee replacement - Primary | + + | Status post total left knee replacement | + +"
--- OUTSIDE RECORDS SUMMARY | 2018-01-08 13:44 | XMS | Encounter Summary ---
Demographics + + + | Address | [address] | | | [place] [address] | + + + | Home Phone | | + + + | Preferred Language | Unknown | + + + | Marital Status | | + + + | Yazidism Affiliation | CAT | + + + | Race | White | + + + | Ethnic Group | Not or | + + + Author + + + | Author | [facility] | + + + | Organization | [facility] | + + + | Address | Unknown | + + + | Phone | Unavailable | + + + Support +------+ +---------+ + | Name | Relationship | Address | Phone | +------+ +---------+ + ECON | Unknown | | +------+ +---------+ + Care Team Providers + +------+ + | Care Town Clerk Name | Role | Phone | + +------+ + | Kurtiswarner Luke | PCP | | + +------+ + Encounter Details +--------+ + + + + | Date | Type | Department | Care Team | Description | +--------+ + + + + | 11/12/ | Hospital | Radiology/Imaging | [facility] | | | 2016 | Encounter | Lab at [facility] [address] | [place] [address] | | | | | [address] [facility] | [address] [facility] | | | | | Health and Healing, | [place] [address] | | | | | [address] [place] [address] | [phone] | | | | | [place], [place] | | | | | | [address] | | | | | | [phone] | | | +--------+ + + + [...] Laboratory | + + + | | [facility] RADIOLOGY VOICE RECOGNITION | + + [...]
--- OUTSIDE RECORDS SUMMARY | 2018-01-08 13:44 | XMS ---
Demographics + + + | Address | [address] | | | [place] [address] | + + + | Preferred Language | Unknown | + + + | Marital Status | Unknown | + + + | Pentecostalism Affiliation | Unknown | + + + | Race | Unknown | + + + | Ethnic Group | Unknown | + + + Author + + + | Author | [facility] | + + + | Organization | [facility] | + + + | Address | [address] | | | [place] [address] | + + + | Phone | | + + + Care Team Providers + + + + | Care Aircraft Structural Fitter Name | Role | Phone | + + + + Unavailable | Unavailable | + + + + PROBLEMS +---------+ + + +--------+ + + | Type | Condition | ICD9-CM | [id number] | Onset | Condition | SNOMED | | | | Code | Code | Dates | Status | Code | +---------+ + + +--------+ + + | Problem | Nausea | | R11.0 | | Active | [id number] | +---------+ + + +--------+ + + | Problem | Epigastric | | R10.13 | | Active | 28754443 | | | pain | | | | | | +---------+ + + +--------+ + + | Problem | Hyperchole | | E78.0 | | Active | 44056986 | | | sterolemia | | | | | | +---------+ + + +--------+ + + | Problem | Dehydratio | | E86.0 | | Active | 75025373 | | | n | | | | | | +---------+ + + +--------+ + + | Problem | Primary | | F51.01 | | Active | 0200942 | | | insomnia | | | [...] + + +---------+ +--------+ + +--------+ | Nortript | Orally | 1 | | | | 30 days | Active | | yline | Once a | capsule | | | | | | | HCl 10 | day qhs | | | | | | | | MG | | | | | | | | + + +---------+ +--------+ + +--------+ RESULTS No Results PROCEDURES No Known procedures IMMUNIZATIONS No Known Immunizations"
--- OUTSIDE RECORDS SUMMARY | 2018-01-08 13:44 | XMS | Encounter Summary ---
Demographics + + + | Address | [address] | | | [place] [address] | + + + | Home Phone | | + + + | Preferred Language | Unknown | + + + | Marital Status | | + + + | Adventist Affiliation | CAT | + + + | Race | White | + + + | Ethnic Group | Not or | + + + Author + + + | Author | [facility] | + + + | Organization | [facility] | + + + | Address | Unknown | + + + | Phone | Unavailable | + + + Support +------+ +---------+ + | Name | Relationship | Address | Phone | +------+ +---------+ + ECON | Unknown | | +------+ +---------+ + Care Team Providers + +------+ + | Care Airport Operations Duty Manager Name | Role | Phone | + +------+ + | Kurtiswarner Luke | PCP | | + +------+ + Encounter Details +--------+ + + + + | Date | Type | Department | Care Team | Description | +--------+ + + + + | 11/08/ | Cryptographic Machine Operator | Orthopaedics at | [facility] | Right knee pain, | | 2016 | | [facility] [address] | [place] [address] | unspecified | | | | [place] Mailcode: CH12A | [address] [place], | chronicity (Primary | | | | [place] [facility] | [place] [address] | Dx) | | | | and [facility], | [phone] | | | | | Floor [place], [place] | | | | | | [address] | | | | | | [phone] | | | +--------+ + + + [...]
--- OUTSIDE RECORDS SUMMARY | 2018-01-08 13:44 | XMS ---
Demographics + + + | Address | [address] | | | [place] [address] | + + + | Preferred Language | Unknown | + + + | Marital Status | Unknown | + + + | Orthodoxy Affiliation | Unknown | + + + | Race | Unknown | + + + | Ethnic Group | Unknown | + + + Author + + + | Author | [facility] | + + + | Organization | [facility] | + + + | Address | [address] | | | [place] [address] | + + + | Phone | | + + + Care Team Providers + + + + | Care Car Installations Supervisor Name | Role | Phone | + + + + Unavailable | Unavailable | + + + + PROBLEMS +---------+ + + +--------+ + + | Type | Condition | ICD9-CM | [id number] | Onset | Condition | SNOMED | | | | Code | Code | Dates | Status | Code | +---------+ + + +--------+ + + | Problem | Nausea | | R11.0 | | Active | [id number] | +---------+ + + +--------+ + + | Problem | Epigastric | | R10.13 | | Active | 15848387 | | | pain | | | | | | +---------+ + + +--------+ + + | Problem | Hyperchole | | E78.0 | | Active | 54892056 | | | sterolemia | | | | | | +---------+ + + +--------+ + + | Problem | Dehydratio | | E86.0 | | Active | 76652061 | | | n | | | | | | +---------+ + + +--------+ + + | Problem | Primary | | F51.01 | | Active | 4266716 | | | insomnia | | | | | | +---------+ + + +--------+ + + ALLERGIES + + + + +--------+ | Substance | Reaction | Event Type | Date | Status | + + + + +--------+ | Cortisone | swelling and | Drug Allergy | May, | Active | | | itch | | | | + + + + +--------+ | Septra DS | Unknown | Drug Allergy | May, | Active | + + + + +--------+ | Domperidone | SOB, weak | Drug Allergy | May, | Active | + + + + +--------+ | Triamcinolone | Unknown | Drug Allergy | May, | Active | + + + + +--------+ | Hydrocortison | Unknown | Drug Allergy | May, | Active | | topical | | | | | | ointment | | | | | + + + + +--------+ | Vicodin | Unknown | Drug Allergy | May, | Active | + + + + +--------+ | Reglan | SOB, feeling | Drug Allergy | May, | Active | | | shaky | | | | + + + + +--------+ | Morphine | vomiting, | Drug Allergy | May, | Active | | Sulfate | headache | | | | + + + + +--------+ | Lidocaine | Unknown | Drug Allergy | May, | Active | + + + + +--------+ | Cymbalta | Unknown | Drug Allergy | May, | Active | + + + + +--------+ | Benadryl | rash | Drug Allergy | May, | Active | + + + + +--------+ | Aspirin | stomach upset | Drug Allergy | May, | Active | + + + + +--------+ | percoset | Unknown | Non Drug | May, | Active | | | | Allergy | | | + + + + +--------+ | codeine | nausea | Non Drug | May, | Active | | | | Allergy | | | + + + + +--------+ SOCIAL HISTORY No smoking Hx information available PLAN OF CARE + +---------+ | Activity | Details | + +---------+ +---+ | | +---+ + + + | Follow Up | prn Reason:null | + + + VITAL SIGNS + + + + | Height | 64 in | 2017-05-09 | + + + + | Weight | 134.4 lbs | 2017-05-09 | + + + + | BMI | 23.07 kg/m2 | 2017-05-09 | + + + + | Heart Rate | 81 /min | 2017-05-09 | + + + + | Blood pressure systolic | 143 mm Hg | 2017-05-09 | + + + + | Blood pressure diastolic | 77 mm Hg | 2017-05-09 | + + + + MEDICATIONS + + + + + + + +--------+ | Medicati | Instruct | Dosage | Frequenc | Start | End Date | Duration | Status | | on | ions | | y | Date | | | | + + + + + + + +--------+ | Meloxica | Orally | 1 tablet | 24h | 08 May, | 8 Rafy, | 30 | Active | | m 15 MG | Once a | | | 2017 | 2017 | day(s) | | | | day | | | | | | | + + + + + + + +--------+ | Levothyr | Orally | 1 tablet | 24h | | | 30 | Active | | oxine | Once a | every | | | | | | | Sodium | day | morning | | | | | | | 50 MCG | | on an | | | | | | | | | empty | | | | | | | | | stomach | | | | | | + + + + + + + +--------+ | Potassiu | Orally | 1 | 8h | | | | Active | | m | tid | capsule | | | | | | | Chloride | | | | | | | | | 10 MEQ | | | | | | | | + + + + + + + +--------+ | Premarin | Vaginal | 0.625 | | | | 30 days | Active | | 0.625 | Mon Wed | | | | | | | | MG/GM | and | | | | | | | | | Saturday | | | | | | | + + + + + + + +--------+ | Vitamin | Orally | 1 tablet | 24h | | | | Active | | B-12 | Once a | | | | | | | | 1000 MCG | day | | | | | | | + + + + + + + +--------+ | Ondanset | Orally | 1 tablet | 8h | | | | Active | | tamie 4 MG | every 8 | on the | | | | | | | | hrs | tongue | | | | | | | | | and | | | | | | | | | allow to | | | | | | | | | | | | | | | | | | dissolve | | | | | | + + + + + + + +--------+ | Atorvast | Orally | 1 tablet | 24h | 27 April, | | 90 days | Active | | atin | Once a | | | 2015 | | | | | Calcium | day | | | | | | | | 20 MG | | | | | | | | + + + + + + + +--------+ | Nortript | Orally | 1 | | | | 30 | Active | | yline | Once a | capsule | | | | | | | HCl 10 | day qhs | | | | | | | | MG | | | | | | | | + + + + + + + +--------+ | Lyrica | Orally | 2 | 12h | | | 90 days | Active | | 75 MG | Twice a | capsules | | | | | | | | day | | | | | | | + + + + + + + +--------+ | Pantopra | | TAKE 1 | | | | 30 | Active | | zole | | TABLET | | | | | | | Sodium | | BY MOUTH | | | | | | | 20 | | TWICE | | | | | | | | | DAILY | | | | | | + + + + + + + +--------+ | Gas-X 80 | Orally | 1 tablet | 6h | | | | Active | | MG | Four | after | | | | | | | | times a | meals | | | | | | | | day | and at | | | | | | | | | bedtime | | | | | | | | | as | | | | | | | | | needed | | | | | | + + + + + + + +--------+ | Fiber | Orally | 2 | 24h | | | | Active | | 48.57 % | once | capsules | | | | | | | | daily | with 8 | | | | | | | | | ounces | | | | | | | | | of | | | | | | | | | liquid | | | | | | + + + + + + + +--------+ | Probioti | | | | | | | Active | | c | | | | | | | | + + + + + + + +--------+ RESULTS No Results PROCEDURES + + + + + | Procedure | Date Ordered | Related Diagnosis | Body Site | + + + + + | Office Visit, Est | May 09, 2017 | | | | Pt., Level 3 | | | | + + + + + IMMUNIZATIONS No Known Immunizations"
--- OUTSIDE RECORDS SUMMARY | 2018-01-08 13:44 | XMS ---
Demographics + + + | Address | [address] | | | [place] [address] | + + + | Preferred Language | Unknown | + + + | Marital Status | Unknown | + + + | Hoahaoism Affiliation | Unknown | + + + | Race | Unknown | + + + | Ethnic Group | Unknown | + + + Author + + + | Author | [facility] | + + + | Organization | [facility] | + + + | Address | [address] | | | [place] [address] | + + + | Phone | | + + + Care Team Providers + + + + | Care Hosiery Mender Name | Role | Phone | + + + + Unavailable | Unavailable | + + + + PROBLEMS +---------+ + + +--------+ + + | Type | Condition | ICD9-CM | [id number] | Onset | Condition | SNOMED | | | | Code | Code | Dates | Status | Code | +---------+ + + +--------+ + + | Problem | Nausea | | R11.0 | | Active | [id number] | +---------+ + + +--------+ + + | Problem | Epigastric | | R10.13 | | Active | [id number] | | | pain | | | | | | +---------+ + + +--------+ + + | Problem | Hyperchole | | E78.0 | | Active | [id number] | | | sterolemia | | | | | | +---------+ + + +--------+ + + | Problem | Dehydratio | | E86.0 | | Active | [id number] | | | n | | | | | | +---------+ + + +--------+ + + | Problem | Primary | | F51.01 | | Active | 4842317 | | | insomnia | | | | | | +---------+ + + +--------+ + + ALLERGIES Unknown Allergies SOCIAL HISTORY No smoking Hx information available PLAN OF CARE VITAL SIGNS MEDICATIONS + + + + +--------+ + +--------+ | Medicati | Instruct | Dosage | Frequenc | Start | End Date | Duration | Status | | on | ions | | y | Date | | | | + + + + +--------+ + +--------+ | Atorvast | Orally | 1 tablet | 24h | | | 90 days | Active | | atin | Once a | | | | | | | | Calcium | day | | | | | | | | 20MG | | | | | | | | + + + + +--------+ + +--------+ RESULTS No Results PROCEDURES No Known procedures IMMUNIZATIONS No Known Immunizations"
--- OUTSIDE RECORDS SUMMARY | 2018-01-08 13:44 | XMS | Clinical Summary ---
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 | | Abiamel [place] | Right knee pain, | | 2016 | | | DEJUAN Catherine | unspecified | | | | | | chronicity (Primary | | | | | | Dx) | +--------+ + + + + | 11/05/ | Library Science Instructor | | [place]imael [place] | Knee pain, [...] | | 08/01/ | 00-111 | | [id number]: Qty: 2 on | | Knee | | | 2017 | 2-140- | | 02/11/2013 by Desean Wei, | | | | | | 01 / | | MD | | | | | | /[id number] | | | | | | | | 317 | + +------+--------+ +--------+--------+--------+ | Legion Hk 13mm Ferdinand Stern | | Right: | MOE & | | 03/01/ | [id number] | | - [id number]: Qty: 1 | | Knee | NEPHEW | | 2020 | 86 / | | on 02/11/2013 by Desean Wei | | | | | | /11CTM | | MD Dorene | | | | | | 0017 | + +------+--------+ +--------+--------+--------+ | Lgn Pressfit Stem 16mm X | | Right: | MOE & | | 05/31/ | [id number] | | 160mm - [id number]: | | Knee | NEPHEW | | 2021 | 49 / | | Qty: 1 on 02/11/2013 by Eriberto | | | | | | /12ESM | | Desean Catherine MD | | | | | | [id number] | + +------+--------+ +--------+--------+--------+ | Lgn Ck/Hk Full Tib Wdge Sz1-2 | | Right: | MOE & | | 07/01/ | 280031 | | 10mm - [id number]: | | Knee | NEPHEW | | 2021 | 73 / | | Qty: 1 on 02/11/2013 by Eriberto, | | | | | | /12GSL | | Desean Catherine MD | | | | | | 0006 | + +------+--------+ +--------+--------+--------+ | Legion Hk Tibial Base Sz 2 | | Right: | MOE & | | 08/01/ | [id number] | | Right - [id number]: | | Knee | NEPHEW | | 2021 | 02 / | | Qty: 1 on 02/11/2013 by Eriberto, | | | | | | /12HM0 | | Desean Catherine MD | | | | | | 8278 | + +------+--------+ +--------+--------+--------+ | Lgn Pressfit Stem 13mm X | | Right: Toshia ROSA & | | 10/31/ | 164162 | | 160mm - [id number]: | | Knee | NEPHEW | | 2021 | 46 / | | Qty: 1 on 02/11/2013 by Eriberto, | | | | | | /12JAB | | Desean Catherine MD | | | | | | 0014B | + +------+--------+ +--------+--------+--------+ | Lgn Hk Dis Fem Wdg Sz3 5mm - | | Right: | MOE & | | 03/01/ | 069074 | | [id number]: Qty: 1 on | | Knee | NEPHEW | | 2021 | 53 / | | 02/11/2013 by Desean Wei, | | | | | | /12CAP | | MD | | | | | | 3397 | + +------+--------+ +--------+--------+--------+ | Lgn Hk Dis Fem Wdg Sz3 10mm - | | Right: | MOE & | | 03/31/ | [id number] | | [id number]: Qty: 1 on | | Knee | NEPHEW | | 2021 | 54 / | | 02/11/2013 by Desean Wei | | | | | | /12DAP | | MD Dorene | | | | | | 6644 | + +------+--------+ +--------+--------+--------+ | Lgn Hk Fem Assembly Sz 3 Rt - | | Right: | MOE & | | 08/01/ | [id number] | | [id number]: Qty: 1 on | | Knee | NEPHEW | | 2018 | 63 / | | 02/11/2013 by Desean Wei | | | | | | /12HM1 | | W, | | | | | | 4185 | + +------+--------+ +--------+--------+--------+ | Legion Hk Gd Motion Isrt 13mm | | Right: | MOE & | | 07/01/ | [id number] | | Sz 2-3 Rt - | | Knee | NEPHEW | | 2020 | 44 / | | [id number]: Qty: 1 on | | | | | | /[id number] | | 02/11/2013 by Desean Wei, | | | | | | 3976 | | | | | | | | | + +------+--------+ +--------+--------+--------+ | [place] Pledget Ptfe 2.5cm X | | | BARD | | 03/01/ | 974254 | | 15cm - [id number]: | | | | | 2019 | / | | Qty: 1 on 06/08/2014 by | | | | | | /[id number] | | Max Ba MD | | | | | | 782 | + +------+--------+ +--------+--------+--------+ | Mesh Parietex Polyester 3.6 | | | COVIDIEN | | | PCO9X | | Round - [id number]: | | | TYCO US | | | / / | | Qty: 1 on 06/08/2014 | | | SURGICAL | | | | + +------+--------+ +--------+--------+--------+ | Cement Bone Palacos R 40gm - | | | YESENIA | | 08/31/ | 00-111 | | [id number]: Qty: 2 on | | | | | 2019 | 2-140- | | 03/14/2016 by Desean Wei | | | | | | 01 / | | MD Dorene | | | | | | /[id number] | | | | | | | | 429 | + +------+--------+ +--------+--------+--------+ | Baseplate Tibial Kasia Ii 4 | | Left: | MOE & | | 11/26/ | [id number] | | Left Knee Cement Titanium | | Knee | NEPHEW | | 2024 | 66 / | | Nonporous - | | | | | | /15MM1 | | [id number]: Qty: 1 on | | | | | | 8253 | | 03/14/2016 by Desean Wei | | | | | | | | MD Dorene | | | | | | | + +------+--------+ +--------+--------+--------+ | Insert Articular 3-4 13mm | | Left: | MOE & | | 07/01/ | [id number] | | Knee Constrain Kasia Ii - | | Knee | NEPHEW | | 2024 | 26 / | | [id number]: Qty: 1 on | | | | | | /[id number] | | 03/14/2016 by Desean Wei | | | | | | 548 | | W, | | | | | | | + +------+--------+ +--------+--------+--------+ | Stem Femoral 100mm 16mm Press | | Left: | MOE & | | 08/31/ | [id number] | | Fit Slotted Revision | | Knee | NEPHEW | | 2023 | 16 / | | Revision Knee - | | | | | | /14JM0 | | [id number]: Qty: 1 on | | | | | | 2890 | | 03/14/2016 by Desean Wei | | | | | | | | W, | | | | | | | + +------+--------+ +--------+--------+--------+ | Component Femoral 5 Knee Left | | Left: | MOE & | | 01/02/ | [id number] | | Posterior Stabilize Kasia | | Knee | NEPHEW | | 2025 | 15 / | | Ii Legion Spc Oxinium - | | | | | | /16BM0 | | [id number]: Qty: 1 on | | | | [...] + + | Urine | [facility], POINT OF CARE TESTS [address], [place] | | | [address] | + + + X-RAY KNEE 4 VIEWS RIGHT 2 VIEWS LEFT ORTHO COMBO (11/12/2017 12:34 PM) + + + | Specimen | Performing Laboratory | + + + | | [facility] VOICE RECOGNITION | + + + [...]
--- OUTSIDE RECORDS SUMMARY | 2018-01-08 13:44 | XMS | Encounter Summary ---
Demographics + + + | Address | [address] | | | [place] [address] | + + + | Home Phone | | + + + | Preferred Language | Unknown | + + + | Marital Status | | + + + | Lutheran Affiliation | CAT | + + + | Race | White | + + + | Ethnic Group | Not or | + + + Author + + + | Author | [facility] | + + + | Organization | [facility] | + + + | Address | Unknown | + + + | Phone | Unavailable | + + + Support +------+ +---------+ + | Name | Relationship | Address | Phone | +------+ +---------+ + ECON | Unknown | | +------+ +---------+ + Care Team Providers + +------+ + | Care Bottom Precipitator Operator Name | Role | Phone | [...] Bj | | | | | | [address] | [address] | | | | | | [address] | Ave | | | | | | [place], [place] | [place], [place] | | | | | | [address] | [address] | | | | | | Phone: | Phone: | | | | | | [phone] | [phone] | | | | | | Fax: | Fax: | | | | | | [phone] | [phone] | +--------+--------+ + + + + Encounter Details +--------+---------+ + + + | Date | Type | Department | Care Team | Description | +--------+---------+ + + + | 11/12/ | Office | Urology at [facility] | Bj Dominguez MD | Vulvovaginitis | | 2017 | Visit | [address] | [address] | (Primary Dx) | | | | Mail Code: CH10U | [place], [place] | | | | | [facility] | [address] | | | | | and , | [phone] | | | | | Floor [place], [place] | | | | | | [address] | | | | | | [phone] | | | +--------+---------+ + + + [...] Bj Dominguez MD - 11/12/2017 3:40 PM RBY50ab with bladder outlet obstruction and dyspar eunia following transobturator mid-urethral sling in 2007. She underwent transvaginal sling excision, cystoscopy 05/22/2017. Callie is voiding great with good force of stream, no difficulty, and has no urinary inconti nence. She is very happy about that. Unfortunately she has been struggling with vaginal disc omfort and itching for several months, she has seen her local furnace tapper Dr. Mariscal a few ti mes and tried vaginal estrogen replacement, antibiotics, antifungal, Crisco, topical clobeta theodore, and a few other things but nothing has helped. There were no vitals taken for this visit. Pelvic Exam (Female): System Administration Manager: Deidra Gross MA External Genitalia: vulvovestibulitis, erythema, [...] - [facility], POINT OF CARE TESTS [address] [facility], [place] | | | [address] | + + + in this encounter Visit Diagnoses + + | Diagnosis | + + | Vulvovaginitis - Primary | + + | Vaginitis and vulvovaginitis, unspecified | + +"
--- OUTSIDE RECORDS SUMMARY | 2018-01-08 13:45 | XMS | Encounter Summary ---
Demographics + + + | Address | [address] | | | [place] [address] | + + + | Home Phone | | + + + | Preferred Language | Unknown | + + + | Marital Status | | + + + | Yarsani Affiliation | CAT | + + + | Race | White | + + + | Ethnic Group | Not or | + + + Author + + + | Author | [facility] | + + + | Organization | [facility] | + + + | Address | Unknown | + + + | Phone | Unavailable | + + + Support +------+ +---------+ + | Name | Relationship | Address | Phone | +------+ +---------+ + ECON | Unknown | | +------+ +---------+ + Care Team Providers + +------+ + | Care Dietary Internship Name | Role | Phone | + +------+ + | Kennedy Luke | PCP | | + +------+ + Encounter Details +--------+ + + + + | Date | Type | Department | Care Team | Description | +--------+ + + + + | 10/08/ | Documentati | Urology at [facility] | Bj Dominguez MD | | | 2017 | on | [address] | [address] | | | | | Mail Code: CH10U | [place], [place] | | | | | [facility] | [address] | | | | | and , | [phone] | | | | | Floor [place], [place] | | | | | | [address] | | | | | | [phone] | | | +--------+ + + + [...]
--- OUTSIDE RECORDS SUMMARY | 2018-01-08 13:45 | XMS | Encounter Summary ---
Demographics + + + | Address | [address] | | | [place] [address] | + + + | Home Phone | | + + + | Preferred Language | Unknown | + + + | Marital Status | | + + + | Anglican Affiliation | CAT | + + + | Race | White | + + + | Ethnic Group | Not or | + + + Author + + + | Author | [facility] | + + + | Organization | [facility] | + + + | Address | Unknown | + + + | Phone | Unavailable | + + + Support +------+ +---------+ + | Name | Relationship | Address | Phone | +------+ +---------+ + ECON | Unknown | | +------+ +---------+ + Care Team Providers + +------+ + | Care Employee Relations Director Name | Role | Phone | + +------+ + | Kennedy Luke | PCP | | + +------+ + Encounter Details +--------+ + + + + | Date | Type | Department | Care Team | Description | +--------+ + + + + | 10/11/ | Documentati | Urology at [facility] | Bj Dominguez MD | | | 2017 | on | [address] | [address] | | | | | Mail Code: CH10U | [place], [place] | | | | | [facility] | [address] | | | | | and | [phone] | | | | | Floor [place], [place] | | | | | | [address] | | | | | | [phone] | | | +--------+ + + + [...]
== END 2018-01-08 15:25 | disposition home or self-care (01) ==
LOC: ED 11:58
DX: R10.9 Unspecified abdominal pain (principal); E78.00 Pure hypercholesterolemia, unspecified; E03.9 Hypothyroidism, unspecified; Z88.8 Allergy status to other drugs, medicaments and biological substances; Z88.2 Allergy status to sulfonamides; Z88.5 Allergy status to narcotic agent; Z79.899 Other long term (current) drug therapy
CPT/HCPCS: 74177; 80053; 81001; 83690; 85025; 99284; Q9967

== ENCOUNTER 2018-04-19 16:58 | Emergency (ER) | payer MEDICARE, BC ==
[~2018-04-19] VITALS: Ht 162.6 cm; Wt 56.2 kg
[~2018-04-19 16:58] MED LIST changes: +OMEPRAZOLE20 MG PO
[2018-04-19] MEDS ORDERED: ONDANSETRON ODT8 MG PO (18:55)
== END 2018-04-19 19:14 | disposition home or self-care (01) ==
LOC: ED 16:58
DX: A08.4 Viral intestinal infection, unspecified (principal); E03.9 Hypothyroidism, unspecified; Z88.8 Allergy status to other drugs, medicaments and biological substances; Z88.2 Allergy status to sulfonamides; Z88.6 Allergy status to analgesic agent; Z88.1 Allergy status to other antibiotic agents; Z88.5 Allergy status to narcotic agent; Z79.899 Other long term (current) drug therapy
CPT/HCPCS: 80053; 81001; 85025; 96361; 96374; 99284; J2405; J7030

== ENCOUNTER 2021-05-30 10:06 | Emergency (ER) | payer MEDICARE, BC ==
[~2021-05-30] VITALS: Ht 162.6 cm; Wt 53.1 kg
[~2021-05-30 10:06] MED LIST changes: +ONDANSETRON ODT8 MG PO
[2021-05-30] MEDS ORDERED: OMEPRAZOLE40 MG PO (10:22)
[2021-05-30] MEDS ORDERED: ONDANSETRON ODT8 MG PO (13:58)
--- NOTE | 2021-05-31 08:57 | EKG ---
[facility] [address] [facility] [place], [place] [address] Signed Normal sinus rhythm Right atrial enlargement Borderline ECG No previous ECGs available Confirmed by PONCE BOYD DO ([id number]) on 05/31/2021 8:57:18 AM Electronically Signed By: PONCE BOYD DO 05/31/21 0857 PATIENT NAME: ROMINA GILL ROBERT Electrocardiogram DATE OF : 43 PHYSICIAN: PONCE BOYD DO REPORT #: [id number] REPORT IS CONFIDENTIAL AND NOT TO BE RELEASED WITHOUT AUTHORIZATION
== END 2021-05-30 14:05 | disposition home or self-care (01) ==
LOC: ED 10:06
DX: E86.0 Dehydration (principal); R19.7 Diarrhea, unspecified; E78.00 Pure hypercholesterolemia, unspecified; E03.9 Hypothyroidism, unspecified; Z87.891 Personal history of nicotine dependence; Z88.8 Allergy status to other drugs, medicaments and biological substances; Z88.5 Allergy status to narcotic agent; Z88.2 Allergy status to sulfonamides; Z88.1 Allergy status to other antibiotic agents; Z88.6 Allergy status to analgesic agent; Z91.040 Latex allergy status; Z79.899 Other long term (current) drug therapy
CPT/HCPCS: 80053; 83735; 84484; 85025; 93005; 93010; 96374; 99284-25; J2405; J7030

== ENCOUNTER 2021-10-09 10:57 | Emergency (ER) | payer MEDICARE, BC ==
[~2021-10-09] VITALS: Ht 162.6 cm; Wt 56.9 kg
[~2021-10-09 10:57] MED LIST changes: +OMEPRAZOLE40 MG PO
--- OUTSIDE RECORDS SUMMARY | 2021-10-09 11:32 | XMS ---
PreManage Notification: ROMINA GILL [employer] Dies Loader Events No recent Security Events currently on file [facility] There are no care providers on record at this time. Robe has no Care Guidelines for this patient. José Miguel VISIT COUNT (12 MO.) 2 SHANNAN Holden TOTAL 2 NOTE: Visits indicate total known visits. ED/UCC VISIT TRACKING (12 MO.) 10/09/2021 10:59 [place]N [place] TYPE: Emergency COMPLAINT: - POSS DEHYDRATION 05/30/2021 10:07 SH[facility]NAN [place] TYPE: Emergency COMPLAINT: - DEHYDRATED, DIZZY, DIARRHEA, NAUSEA, HEADACHE DIAGNOSES: - Allergy status to other drugs, medicaments and biological substances - Hypothyroidism, unspecified - Pure hypercholesterolemia, unspecified - Dizziness and giddiness - Latex allergy status - Allergy status to narcotic agent - Diarrhea, unspecified - Personal history of nicotine dependence - Other intermediate card tender (current) drug therapy - Dehydration - Allergy status to sulfonamides - Allergy status to other antibiotic agents - Allergy status to analgesic agent INPATIENT VISIT TRACKING (12 MO.) No inpatient visits to display in this time frame [id number]
[2021-10-09] MEDS ORDERED: ONDANSETRON ODT4 MG PO (14:02)
== END 2021-10-09 14:30 | disposition home or self-care (01) ==
LOC: ED 10:57
DX: K52.9 Noninfective gastroenteritis and colitis, unspecified (principal); K21.9 Gastro-esophageal reflux disease without esophagitis; E86.0 Dehydration; E78.00 Pure hypercholesterolemia, unspecified; E03.9 Hypothyroidism, unspecified; Z87.891 Personal history of nicotine dependence; Z88.8 Allergy status to other drugs, medicaments and biological substances; Z88.5 Allergy status to narcotic agent; Z88.2 Allergy status to sulfonamides; Z88.1 Allergy status to other antibiotic agents; Z88.6 Allergy status to analgesic agent; Z79.899 Other long term (current) drug therapy
CPT/HCPCS: 80053; 83690; 85025; 96374; 99284-25; J2405; J7030

== ENCOUNTER 2023-01-29 18:12 | Emergency (ER) | payer MEDICARE, BC ==
[~2023-01-29] VITALS: Ht 162.6 cm; Wt 54.4 kg
[~2023-01-29 18:12] MED LIST changes: +ONDANSETRON ODT4 MG PO
[2023-01-29] MEDS ORDERED: TOBRAMYCIN-DEXAM5 ML OPTH (18:26)
[2023-01-29] MEDS ORDERED: CEPHALEXIN500 M1 PO (20:32)
== END 2023-01-29 21:09 | disposition home or self-care (01) ==
LOC: ED 18:12
DX: N39.0 Urinary tract infection, site not specified (principal); E78.00 Pure hypercholesterolemia, unspecified; Z87.891 Personal history of nicotine dependence; Z88.8 Allergy status to other drugs, medicaments and biological substances; Z88.5 Allergy status to narcotic agent; Z88.1 Allergy status to other antibiotic agents; Z88.6 Allergy status to analgesic agent; Z88.2 Allergy status to sulfonamides; Z79.899 Other long term (current) drug therapy
CPT/HCPCS: 99283; A9270

== ENCOUNTER 2024-01-09 11:27 | Emergency (ER) | payer MEDICARE, BC ==
[~2024-01-09] VITALS: Ht 162.6 cm; Wt 56.7 kg
[~2024-01-09 11:27] MED LIST changes: +CEPHALEXIN500 M1 PO; +LOMOTIL TABLET1 EACH PO; +LOPERAMIDE2 MG PO; +TOBRAMYCIN-DEXAM5 ML OPTH
[2024-01-09 12:12] LABS: BASOPHILS 0.9 % (0-2); EOSINOPHILS 0.9 % (0-6); HEMATOCRIT 38.8 % (35.0-50.0); HEMOGLOBIN 12.8 g/dL (12.0-18.0); LYMPHOCYTES 15.3 % (24-44); MCH 30.8 (27-36); MCV 93.4 fl (81-99); MONOCYTES 3.6 % (0-12); NEUTROPHILS 79.3 % (39-80); PLATELET COUNT 144 K/uL (140-440); RBC 4.15 M/ul (4.3-5.7); RDW 14.5 (10.5-15.0)
[2024-01-09] MEDS ORDERED: ondansetron HCL 4 MG/2 ML VIAL IV ONE ×2 (12:15→18:00)
[2024-01-09 12:21] LABS: ALBUMIN 3.4 g/dL (3.4-5.0); ALBUMIN/GLOBULIN RATIO 1.1 (1.1-2.4); BILIRUBIN, TOTAL 0.6 ng/dL (0.2-1.0); BUN/CREATININE RATIO 18.36 (6.0-28.6); CALCIUM 9.4 mg/dL (8.5-10.1); CREATININE, SERUM 0.98 mg/dL (0.55-1.02); PROTEIN, TOTAL 6.5 g/dL (6.4-8.2)
[2024-01-09 12:59] LABS: BILIRUBIN, URINE NEGATIVE (negative); BLOOD/HGB, URINE NEGATIVE (Negative); KETONE, URINE NEGATIVE (Negative); LEUK ESTERASE, URINE NEGATIVE (negative); NITRITE, URINE NEGATIVE (negative); PH, URINE 7.5 (5-7)
[2024-01-09] MEDS ORDERED: LIDOCAINE & ANTACID 35 ML BTL PO ONE (13:30)
[2024-01-09] MEDS ORDERED: SOD PHOSPHATE/SOD BIPHOSPHATE 132 ML BTL PR ONE (16:45)
[2024-01-09] MEDS ORDERED: MAGNESIUM CITRATE 300 ML BTL PO ONE (18:00)
== END 2024-01-09 18:24 | disposition home or self-care (01) ==
LOC: ED 11:27
DX: K59.00 Constipation, unspecified (principal); E78.00 Pure hypercholesterolemia, unspecified; M79.7 Fibromyalgia; E03.9 Hypothyroidism, unspecified; Z87.19 Personal history of other diseases of the digestive system; Z87.891 Personal history of nicotine dependence; Z88.1 Allergy status to other antibiotic agents; Z88.2 Allergy status to sulfonamides; Z88.4 Allergy status to anesthetic agent; Z88.5 Allergy status to narcotic agent; Z88.6 Allergy status to analgesic agent; Z88.8 Allergy status to other drugs, medicaments and biological substances; Z91.048 Other nonmedicinal substance allergy status; Z79.899 Other long term (current) drug therapy
CPT/HCPCS: 36415; 74177; 80053; 81003; 83690; 85025; 99284-25; J2405; Q9967

== ENCOUNTER 2025-09-02 11:53 | Day surgery (SDC) | payer MEDICARE, OTHER ==
[~2025-09-02 11:53] MED LIST changes: +CEFAZOLIN SODIUM 2 GM in SODIUM CHLORIDE 0.9% 100 ML IV SCH; +IBLOOD GLUCOSE TEST STRIP 1 EA TEST VI PRN; +LACTATED RINGER'S 1,000 ML IV SCH; +LIDOCAINE HCL 1% 5 ML SDV INJ ONE; +LIDOCAINE HCL 4% 50 ML BTL TOP SCH
[2025-09-02 12:15] VITALS: BP 144/72
[2025-09-02] MEDS ORDERED: fentaNYL citrate 100 MCG/2 ML VIAL ONE (12:35)
[2025-09-02] MEDS ORDERED: MIDAZOLAM HCL 5 MG/5 ML VIAL ONE (12:35)
[2025-09-02] MEDS ORDERED: CEPHALEXIN250 MG PO (12:39)
--- NOTE | 2025-09-02 13:27 | NUR ---
09/02/25 1326 Nona Felix 1314 PT TO PACU AWAKE AND ALERT REPORTS SHE FEELS COLD MICHELLE HUGGER PLACED ON PT BTWN SHEETS. PT ASLEEP OFF AND ON.
[2025-09-02 14:20] VITALS: BP 146/65
--- NOTE | 2025-09-02 14:20 | NUR ---
PT ARRIVED BACK TO DS ON RA, DROWSY, BUT EASILY AROUSES TO VERBAL STIMULI. PT ANSWERS QUESTIONS APPROPRIATELY AND IS ABLE TO MAKE HER NEEDS KNOWN. REPORT RECEIVED FROM FUR POLISHER. PT DENIES PAIN OR NAUSEA WHEN ASKED. VS TAKEN. IV SITE ASSESSED. BED IN LOW POSITION, WHEELS LOCKED, BILAT RAILS IN PLACE. CALL LIGHT WITHIN REACH. ALL QUESTIONS ANSWERED.
--- NOTE | 2025-09-02 14:50 | NUR ---
1450-INTO PTS ROOM FOR ROUTINE REASSESSMENT. PT AAOX3 AND CONCERSING WITH . PT PROVIDED WITH VERBAL AND WRITTEN DC INSTRUCTION, HARD COPY RX, AND EDUCATION HANDOUT OF FODMAP DIETARY CHOICES. PT VERBALIZED UNDERSTANDING AND ALL QUESTIONS ANSWERED. IV REMOVED AND TIP APPEARS INTACT. PRESSURE DRSG APPLIED WITH GAUZE AND COBAN. LEFT TO PULL CAR AROUND. PT ASSISTED WITH DRESSING FOR DC HOME.
--- NOTE | 2025-09-02 15:10 | NUR ---
PT DISCHARGED FROM DS VIA WC TO PASSENGER SIDE OF HUSBANDS VEHICLE. PT LEFT WITH ALL PERSONAL BELONGINGS.
--- NOTE | 2025-09-02 19:47 | OR ---
[facility] [address] [place], [place] [address] Signed DATE OF OPERATION: 09/02/2025 SURGEON: Rabia Landers MD PREOPERATIVE DIAGNOSES: 1. Longstanding chronic abdominal pain. 2. History of documented gastroparesis and history of pyloroplasty. 3. Current persistent episodic epigastric pain. POSTOPERATIVE DIAGNOSIS: Normal-appearing esophagus, stomach and duodenum. PROCEDURE: Esophagogastroduodenoscopy with biopsy. ANESTHESIA: Intravenous sedation, fentanyl 100 mcg and Versed 3 mg. INDICATION: This 80-year-old white woman is a patient of Dr. Brant Bullard. The patient is known to me for quite some time, having undergone a partial colectomy in 2009 for diverticular disease, cholecystectomy performed by others in 1989 and I have not seen her in 13 years. She had been seen Dr. Aiken who is now retired. She continues to have abdominal pain poorly described, mostly in the epigastric area, sometimes worse with eating. She has undergone cholecystectomy as noted and has taken Zofran and others medications including PPI with apparent poor benefit. She is admitted at this time to undergo upper endoscopy to assure there is no other abnormalities that accounts for epigastric pain, though she understands the yield of such procedure is low given her prior abdominal issues. FINDINGS: Esophagus, stomach and duodenum were normal. There was no sign of ulceration, neoplasm, or other problem. H pylori test was negative at first glance. DESCRIPTION OF PROCEDURE: The patient was brought to the endoscopy suite, given topical lidocaine and hypopharyngeal anesthesia and placed in lateral decubitus position. A bite block was placed after intravenous sedation induced with full cardiopulmonary monitoring. Olympus video upper endoscope was passed in the hypopharynx. The vocal cords were normal. Scope was advanced to the esophagus throughout its length it was normal. Scope was Electronically Signed By: RABIA LANDERS MD 09/02/251946 PATIENT NAME: ROMINA GILL OPERATIVE REPORT DATE OF : 43 REPORT #: [id number] PHYSICIAN: RABIA LANDERS MD PCP: BRANT BULLARD MD REPORT IS CONFIDENTIAL AND NOT TO BE RELEASED WITHOUT AUTHORIZATION [facility] [address], [place] [address] Signed passed through the stomach which was also normal and into the duodenum. Duodenum was normal. Biopsies were obtained to assess for celiac disease. The scope was withdrawn. A biopsy was then taken of the antrum for both DORON and pathologic testing. Retroflexed view was undertaken showing reasonably intact flap valve. Scope was withdrawn. Biopsies taken of the distal and mid esophagus. Mid esophageal area did show shallow islands of mucosa and were not truly polyps but were distinct from surrounding the esophagus. Scope was withdrawn and removed. The patient was taken to the recovery room in good condition. CONCLUDING DIAGNOSIS: As expected upper endoscopy was relatively unrevealing. PLAN: Empiric trial of Carafate 1 g p.o. q.i.d. is a consideration. She should stay on the PPI medication. We will assess for her CLOtest as time goes on. Plan Carafate 500 mg p.o. q.i.d. Initiate a low-FODMAP diet. Return to see me in six weeks in the office. Rabia Landers MD JM/MODL /[id number] cc: Brant Bullard MD Copies: BRANT BULLARD MD ~ Electronically Signed By: RABIA LANDERS MD 09/02/25 1947 PATIENT NAME: ROMINA GILL OPERATIVE REPORT DATE OF : 43 REPORT #: [id number] PHYSICIAN: RABIA LANDERS MD PCP: BRANT BULLARD MD REPORT IS CONFIDENTIAL AND NOT TO BE RELEASED WITHOUT AUTHORIZATION
--- NOTE | 2025-09-07 11:26 | PATH ---
[facility] [address] [place], [place] [address] Signed SPECIMEN(S): A DUODENAL BIOPSY SPECIMEN(S): B ANTRUM BIOPSY SPECIMEN(S): C LOWER ESOPHAGEAL BIOPSY SPECIMEN(S): D MIDDLE ESOPHAGEAL BIOPSY SPECIMEN SOURCE: A. DUODENAL BIOPSY B. ANTRUM BIOPSY C. LOWER ESOPHAGEAL BIOPSY D. MIDDLE ESOPHAGEAL BIOPSY CLINICAL HISTORY: Pre-: Epigastric pain with nausea. Post-normal A-D) biopsy FINAL PATHOLOGIC DIAGNOSIS: A. Duodenal biopsy: - Benign duodenal mucosa, negative for specific diagnostic abnormality. B. Antrum biopsy: - Benign gastric mucosa with focal slight chronic inflammation. - Negative for evidence of Helicobacter organisms on routine HE-stained sections. C. Lower esophageal biopsy: - Benign esophageal epithelium, negative for increased epithelial eosinophils. - Negative for glandular mucosa. D. Mid esophageal biopsy: - Benign esophageal epithelium, negative for increased epithelial eosinophils. JVR:clv MICROSCOPIC EXAMINATION: Histologic sections of all submitted blocks are examined by light microscopy. These findings, together with the gross examination, support the pathologic diagnosis. GROSS DESCRIPTION: A. The specimen, labeled and designated "Geraths, duodenal biopsy," is received in formalin and consists of four macario soft tissue fragments, ranging from 0.2-0.6 cm. Entirely submitted in (A1). B. The specimen, labeled and designated "Geraths, antrum biopsy," is received in formalin and consists of two macario soft tissue fragments, ranging from 0.3-0.5 cm. Entirely submitted in (B1). PATIENT NAME: ROMINA GILL PATHOLOGY DATE OF : 43 REPORT #: [id number] PHYSICIAN: KATEY GARCIA PCP: BRANT ESPINO MD REPORT IS CONFIDENTIAL AND NOT TO BE RELEASED WITHOUT AUTHORIZATION [facility] [address] [place], [place] [address] Signed C. The specimen, labeled and designated "Geraths, lower esophageal biopsy," is received in formalin and consists of two macario soft tissue fragments, ranging from 0.3-0.4 cm. Entirely submitted in (C1). D. The specimen, labeled and designated "Geraths, middle esophageal biopsy," is received in formalin and consists of one macario soft tissue fragment, 0.5 cm. Entirely submitted in (D1). AB (under the direct supervision of a pathologist) The Gross Description was prepared using a voice recognition system. The report was reviewed for accuracy; however, sound-alike word errors, addition and/or deletions may occur. If there is any question about this report, please contact Client Services. PERFORMING LABORATORY: Technical component was performed by [facility], [address] [place] [id number] (CLIA# [id number]). Professional interpretation was performed by [facility], [address] [place] [id number] (CLIA#: [id number]). Diagnostician: Crispin Thapa MD Pathologist Electronically Signed 09/07/2025 Copies: ~ PATIENT NAME: ROMINA GILL PATHOLOGY DATE OF : 43 REPORT #: [id number] PHYSICIAN: KATEY PATHOLOGY PCP: BRANT ESPINO MD REPORT IS CONFIDENTIAL AND NOT TO BE RELEASED WITHOUT AUTHORIZATION
== END 2025-09-02 15:10 | disposition home or self-care (01) ==
LOC: DS 11:53 → OPS 11:53 → DS 13:00 → OPS 13:00
PROVIDERS: ATTEND Surgery
PROC: 0DB68ZX Excision of Stomach, Via Natural or Artificial Opening Endoscopic, Diagnostic (ICD-10-PCS; 2025-09-02)
PROC: 0DB28ZX Excision of Middle Esophagus, Via Natural or Artificial Opening Endoscopic, Diagnostic (ICD-10-PCS; 2025-09-02)
PROC: 0DB38ZX Excision of Lower Esophagus, Via Natural or Artificial Opening Endoscopic, Diagnostic (ICD-10-PCS; 2025-09-02)
PROC: 0DB98ZX Excision of Duodenum, Via Natural or Artificial Opening Endoscopic, Diagnostic (ICD-10-PCS; principal; 2025-09-02 13:00)
DX: K29.50 Unspecified chronic gastritis without bleeding (principal); K59.09 Other constipation; E03.9 Hypothyroidism, unspecified; K21.9 Gastro-esophageal reflux disease without esophagitis; Z88.8 Allergy status to other drugs, medicaments and biological substances; Z88.5 Allergy status to narcotic agent; Z93.3 Colostomy status; Z79.890 Hormone replacement therapy
CPT/HCPCS: 88305; G0500; J0688; J2250; J3010; J7121

== ENCOUNTER 2025-11-11 05:49 | Day surgery (SDC) | payer MEDICARE, OTHER ==
[2025-11-08 09:40] VITALS: BP 121/57
[~2025-11-11] VITALS: Ht 162.6 cm; Wt 54.5 kg
[~2025-11-11 05:49] MED LIST changes: -CEFAZOLIN SODIUM 2 GM in SODIUM CHLORIDE 0.9% 100 ML IV SCH; +CEPHALEXIN250 MG PO; -IBLOOD GLUCOSE TEST STRIP 1 EA TEST VI PRN; -LIDOCAINE HCL 1% 5 ML SDV INJ ONE; -LIDOCAINE HCL 4% 50 ML BTL TOP SCH; +VITAMIN B12500 MCG PO
[2025-11-11 06:09] VITALS: BP 132/56
[2025-11-11] MEDS ORDERED: HEParin SOD (PORCINE) 5,000 UNIT/ML SDV ONE ×2 (06:29→06:34)
[2025-11-11] MEDS ORDERED: SODIUM CHLORIDE 0.9% 100 ML IV ONE (06:36)
[2025-11-11] MEDS ORDERED: LIDOCAINE HCL 1% 5 ML SDV INJ ONE (07:00)
[2025-11-11] MEDS ORDERED: HEParin SOD (PORCINE) 5,000 UNIT/ML SDV SUB-Q SCH (07:00)
[2025-11-11] MEDS ORDERED: IBLOOD GLUCOSE TEST STRIP 1 EA TEST VI PRN ×2 (07:00→08:30)
[2025-11-11] MEDS ORDERED: CEFAZOLIN SODIUM 2 GM in SODIUM CHLORIDE 0.9% 100 ML IV SCH (07:00)
[2025-11-11] MEDS ORDERED: LIDOCAINE HCL 2% 5 ML SDV ONE (07:17)
[2025-11-11] MEDS ORDERED: ACETAMINOPHEN 1,000 MG/100 ML VIAL ONE (07:30)
[2025-11-11] MEDS ORDERED: KETOROLAC TROMETHAMINE 30 MG/ML VIAL ONE (08:17)
[2025-11-11] MEDS ORDERED: fentaNYL citrate 50 MCG/ML SDV ONE (08:26)
[2025-11-11] MEDS ORDERED: NALOXONE HCL 0.4 MG SYR IV PRN ×2 (08:30→08:45)
[2025-11-11] MEDS ORDERED: fentaNYL citrate 50 MCG/ML SDV IV PRN (08:30)
[2025-11-11] MEDS ORDERED: TYLENOL325 MG PO (08:44)
[2025-11-11] MEDS ORDERED: LACTATED RINGER'S 1,000 ML IV SCH (08:45)
[2025-11-11] MEDS ORDERED: ACETAMINOPHEN 325 MG TAB PO PRN (08:45)
[2025-11-11 10:17] VITALS: BP 148/55
--- NOTE | 2025-11-11 10:20 | NUR ---
1005- PT ARRIVES FROM PACU PARTIALLY DRESSED WITH GOWN ON THE UPPER HALF. PT REPORTS PAIN 4/10. PT REPORTS FEELING TIRED AND DIZZY. HOB DECREASED SOME, EMESIS BAG AND ALCHOL WIPE PROVIDED TO HELP WITH NAUSEA. SURGICAL SITE ASSESSED AND BOTH SITES SHOW A SMALL AMOUNT OF RED DRAINAGE. PT REPORTS FEELING TIRED AND COLD. PT IS GIVEN WARM AIR AND WARM BLANKETS, AND IS EDUCATED ABOUT MEDICATION MAKING HER SLEEPY. VSS. 1025- PT AT BEDSIDE.
--- NOTE | 2025-11-11 10:36 | NUR ---
11/11/25 Chey Boyle 6016 PT ARRIVED TO PACU MOANING AND SAYING "IT HURTS" PT TEARFUL. RN TRYING TO REORIENT PT AND PLAN OF CARE DISCUSSED. PT RESTING IN SEMI FOWLERS.
[2025-11-11 10:56] VITALS: BP 127/49
--- NOTE | 2025-11-11 10:57 | NUR ---
1100- PT IS RESTING IN BED. PT REPORTS FEELING WARMER AND BETTER. PT RESTING WITH EYES CLOSED. SURGICAL SITE SHOWS NO CHANGE. VSS.
--- NOTE | 2025-11-11 12:07 | NUR ---
1205 PT USED CALL LIGHT TO ALERT RN THAT PT NEEDED TO URINATE. PT ABLE TO AMBULATE TO BATHROOM WITH MINIMAL ASSISTANCE. PT ABLE TO VOID 200 MLS OF CLEAR YELLOW URINE. PT ABLE TO AMBULATE BACK TO ROOM WITHOUT ASSISTANCE. PT BACK IN BED, SPOKE WITH MD IN THE HALLWAY. MD AWARE TO COME SEE PATEINT AND SPEAK WITH PT PRIMARY RN WHEN HE HAS A MOMENT.
[2025-11-11 12:23] VITALS: BP 149/62
--- NOTE | 2025-11-11 13:00 | NUR ---
1233- PT HAS TALKED WITH DR. LANDERS. VITAL SIGNS OBATINED. VSS. PT REQUESTING TO GO HOME. LEAVING TO GET VEHICLE. PT HAS PRESCRIPTION WITH DISCHARGE PAPERWORK. PT TOLD RN THAT ALL DISCHARGE PAPERWORK HAD BEEN GONE OVER IN PACU. PT IS ASSISTED IN GETTING DRESSED. PT IS ABLE TO AMBULATE TO HOSPITAL WHEELCHAIR WITH NO ISSUES. PT IS WHEELED OUT OF DAY SURGERY AT THIS TIME. PT IS ABLE TO GET INTO FAMILY VEHICLE WITH NO ISSUES. ALL QUESTIONS AND CONCERNS ANSWERED.
--- NOTE | 2025-11-13 14:08 | OR ---
[facility] [address], [place] [address] Signed DATE OF OPERATION: 11/11/2025 SURGEON: Rabia Landers MD PREOPERATIVE DIAGNOSES: 1. Chronic pain. 2. Recurrent dehydration episodes. 3. Difficult peripheral IV access. POSTOPERATIVE DIAGNOSES: 1. Chronic pain. 2. Recurrent dehydration episodes. 3. Difficult peripheral IV access. PROCEDURES: 1. Placement of right internal jugular Port-A-Cath. 2. Ultrasound-guided IV access, right internal jugular vein. 3. Surgeon-directed fluoroscopy. ANESTHESIA: Local with monitored anesthesia care; Agnieszka Ojeda CRNA including 7 mL of 0.25% Marcaine with epinephrine. INDICATION: This 80-year-old white woman is now a patient of Dr. Brant Bullard and very well known to me over the past 30 years for various things including history of colectomy for diverticular disease. The patient has long-standing chronic abdominal pain and has episodes of clinical dehydration. An exhaustive workup of her gastrointestinal tract reveals no specific cause of her issues. She occasionally presents to the emergency room for IV hydration and overtime has had progressive poor peripheral access. The patient strongly wishes to have a central venous access catheter for rehydration without the difficulties of peripheral IV access. After conferring with her primary provider Dr. Bullard, it was deemed a reasonable indication for this purpose. She understands the risk of bleeding, infection, pneumothorax, need for other indicated procedures and so forth and wished to proceed. FINDINGS: Electronically Signed By: RABIA LANDERS MD 11/13/25 1408 PATIENT NAME: ROMINA GILL OPERATIVE REPORT DATE OF : 43 REPORT #: [id number] PHYSICIAN: RABIA LANDERS MD PCP: BRANT BULLARD MD REPORT IS CONFIDENTIAL AND NOT TO BE RELEASED WITHOUT AUTHORIZATION [address] [address] Signed Access to the right internal jugular vein was without complication. The catheter was placed without problem. The tip of the catheter is in the distal superior vena cava. Good function of the catheter is noted. DESCRIPTION OF PROCEDURE: The patient was brought to the operating room, given an intravenous sedation type anesthetic. With arms at the side and the head turned towards the right, the upper torso and neck was prepared with a chlorhexidine solution and draped sterilely. Preoperative antibiotics were given. Table was in a Trendelenburg position. After sterile draping, the right neck was assessed with a SonoSite ultrasound, identifying easily the right internal jugular vein. The area was anesthetized with local anesthetic and under direct visualization, access to the vein undertaken. The right internal jugular vein was accessed showing dark nonpulsatile bleeding. Flexible J-wire was passed down the needle and under fluoroscopic control, the wire was assured to be in the right heart system. Local anesthetic was injected transversely over the right pectoralis area and an incision was made with a 15 blade. Dissection was carried through the subcutaneous tissue with electrocautery. A pocket was created inferiorly. A previously inspected Port-A-Cath port was partially secured to the pectoralis fascia with interrupted 2-0 Vicryl suture. The wire emanating from the right lateral neck was stabilized and the skin incised with an 11 blade. A dilator and subsequently dilator and peel-away introducer was passed over the wire. The wire and the dilator were removed showing vigorous retrograde nonpulsatile dark bleeding. A previously inspected Groshong type catheter was passed down the dilator after removal of the dilator and the wire and passed as far as possible. The catheter was gently stabilized and the peel-away introducer removed. The patient was then placed in the neutral position and fluoroscopy undertaken once again. A small amount of IV contrast in the catheter, catheter was withdrawn to the appropriate position just distal to the sourav indicative of the distal superior vena cava. The tunneling device was used to pass the catheter from the neck over the clavicle to the port pocket site and was trimmed to appropriate configuration and attached to the port device and secured per manufacture's instructions. Access of the port with a Duckworth needle showed easy withdrawal of blood and easy infusion of heparinized saline. The port was more completely secured to the pectoralis fascia. Under fluoroscopic control, the port was accessed once again and showed a good configuration without sign of kink or other abnormality at the junction of the catheter in the port and the area in the neck similarly reasonable. The port pocket incision was closed with Electronically Signed By: RABIA LANDERS MD 11/13/25 1408 PATIENT NAME: ROMINA GILL [facility] OPERATIVE REPORT DATE OF : 43 REPORT #: [id number] PHYSICIAN: RABIA LANDERS MD PCP: BRANT BULALRD MD REPORT IS CONFIDENTIAL AND NOT TO BE RELEASED WITHOUT AUTHORIZATION [address] [address] Signed interrupted 2-0 Vicryl and running subcuticular 3-0 Vicryl. The skin of the neck incision secured with interrupted 3-0 Vicryl. Steri-Strips were applied to each. The final fluoroscopic view showed the catheter to be in good position. An Acticoat dressing was applied to the right pectoral area and a sterile OpSite applied over the Steri-Strips on the right neck. She was ultimately allowed to emerge from sedation and taken to recovery room in good condition having suffered no complications. Sponge, needle, and instrument counts were reported as correct x3. Rabia Landers MD JM/MODL /[id number] cc: Brant Bullard MD Copies: BRANT BULLARD MD ~ Electronically Signed By: RABIA LANDERS MD 11/13/25 1408 PATIENT NAME: ROMINA GILL [facility] OPERATIVE REPORT DATE OF : 43 REPORT #: [id number] PHYSICIAN: RABIA LANDERS MD PCP: BRANT BULLARD MD REPORT IS CONFIDENTIAL AND NOT TO BE RELEASED WITHOUT AUTHORIZATION
== END 2025-11-11 12:33 | disposition home or self-care (01) ==
LOC: DS 05:49
PROVIDERS: ATTEND Surgery
PROC: B543ZZA Ultrasonography of Right Jugular Veins, Guidance (ICD-10-PCS; 2025-11-11)
PROC: 05HM33Z Insertion of Infusion Device into Right Internal Jugular Vein, Percutaneous Approach (ICD-10-PCS; principal; 2025-11-11 07:30)
DX: G89.29 Other chronic pain (principal); E03.9 Hypothyroidism, unspecified; M79.7 Fibromyalgia; Z79.890 Hormone replacement therapy; Z79.899 Other long term (current) drug therapy; Z88.6 Allergy status to analgesic agent; Z88.1 Allergy status to other antibiotic agents; Z88.5 Allergy status to narcotic agent; Z88.7 Allergy status to serum and vaccine; Z88.2 Allergy status to sulfonamides; Z88.8 Allergy status to other drugs, medicaments and biological substances; Z90.49 Acquired absence of other specified parts of digestive tract
CPT/HCPCS: 00532; 71045; 77001; C1788; J0131; J0688; J1644; J1885; J2003; J2405; J2704; J3010; J7121